=== PATIENT | male | born 1945 | race Caucasian/White ===

== ENCOUNTER 2016-12-09 14:47 | Inpatient (IN) | payer MEDICARE ==
[~2016-12-09] VITALS: Ht 185.4 cm; Wt 79.1 kg
[2016-12-09 14:52] VITALS: BP 150/70; PULSE 71; RESP 15; TEMP 97.7; O2SAT 97
--- NOTE | 2016-12-09 14:57 | PD ---
Physical Exam Date Seen by Provider: December 09, 2016 Time Seen by Provider: 14:53 Narrative 71 yo male that presents to the ED for evaluation of fall. History of dementia. History obtained from . He felt at the [facility]. Landed on his left hip as well as left elbow. No head injury. No LOC. Slidded down into the carpet. Has an abrasion to the left elbow. Vitals sign stable. Patient awaiting bed placement. Data Data Last Documented VS Vital Signs Date Time Temp Pulse Resp B/P Pulse Ox O2 Delivery O2 Flow Rate FiO2 12/09/16 14:52 97.7 71 15 150/70 97 MDM Medical Record Reviewed: Yes Supervised Visit with DORA: No Kalpesh Orellana December 09, 2016 14:57
--- NOTE | 2016-12-09 15:42 | PD ---
HPI Chief Complaint: Fall Time Seen by Provider: 15:42 Travel History International Travel<30 days: No Contact w/Intl Traveler<30days: No Traveled to known affect area: No History of Present Illness HPI 71-year-old male with a history of hypertension, hyperlipidemia, CHF, Parkinson' s disease, dementia presents to the emergency department for evaluation of left hip pain status post trip and fall. The patient is accompanied by his who provides much of the history. The patient and his are here visiting from [facility]. They were walking through a doorway at the [facility] where they're staying when the patient lost his balance and fell. The patient states that he was using his walker and was trying to hold the door open while his was going through the doorway with her scooter. States that he lost his balance trying to hold the door open and fell to the left scraping his left elbow and landing on his left hip. The patient's states that she saw him fall and that he did not hit his head or lose consciousness. He denies any lightheadedness, dizziness, nausea, vomiting, chest pain, shortness of breath, abdominal pain, numbness or tingling. He complains of pain in the left hip is aggravated with movement. No other complaints. He takes a baby aspirin daily but otherwise denies any anticoagulation. Last tetanus vaccination one year ago. PFSH Past Medical History Hx Anticoagulant Therapy: Yes (ASA) Heart Rhythm Problems: Yes Cardiovascular Problems: Yes (HTN) High Cholesterol: Yes Hypertension: Yes Neurologic: Yes (parkinson, dementia) Parkinson's Disease: Yes Social History Alcohol Use: No Tobacco Use: No Substance Use: No Allergies-Medications (Allergen,Severity, Reaction): Coded Allergies: Haldol (Verified Allergy, Severe, COMBATIVE, 12/09/16) Oxybutynin (Verified Allergy, Unknown, 12/09/16) Uncoded Allergies: steroids (Adverse Reaction, Severe, Confusion, 12/09/16) patient had episode in the past where he became extremely confused and combative after receiving steroids and his said that it is only to be given as a last resort. Reported Meds & Prescriptions Reported Meds & Active Scripts Active Reported Rivastigmine 1.5 Mg Cap 1.5 Mg PO BIDPC Sinemet (Carbidopa-Levodopa) 25-100 Mg Tab 2 Tab PO QID Amlodipine (Amlodipine Besylate) 10 Mg Tab 10 Mg PO DAILY Tamsulosin (Tamsulosin HCl) 0.4 Mg Cap 0.8 Mg PO AC DINNER Nuplazid (Pimavanserin) 17 Mg Tab 34 Mg PO DAILY Glycopyrrolate 1 Mg Tab 1 Mg PO BID Seroquel (Quetiapine Fumarate) 25 Mg Tab 25 Mg PO BID PRN Protonix (Pantoprazole Sodium) 40 Mg Tab 40 Mg PO DAILY Valsartan 160 Mg Tab 160 Mg PO DAILY Gnp Melatonin Maximum Str (Melatonin) 5 Mg Tab 10 Mg PO HS Review of Systems Except as stated in HPI: all other systems reviewed are Neg Physical Exam Narrative GENERAL: Well-nourished and well-developed pleasant elderly male patient in no acute distress who is nontoxic appearing. SKIN: Warm and dry. Abrasion to left elbow. HEAD: Normocephalic and atraumatic. EYES: No injection, drainage, or hyphema noted. PERRLA. EOMI. ENT: No nasal drainage noted. Oropharynx is clear. NECK: Supple and the trachea is midline. CARDIOVASCULAR: Regular rate and rhythm. RESPIRATORY: Breath sounds are equal bilaterally with no accessory muscle use, wheezing, rhonchi, or crackles. GASTROINTESTINAL: Abdomen is soft, non-tender, and nondistended. MUSCULOSKELETAL: Patient does have some range of motion in the left hip however does elicit pain. DP pulses are 2+ bilaterally. Sensation is intact. Full range of motion in the left elbow with no tenderness to palpation. No obvious deformities, swelling, cyanosis, or ecchymosis is present throughout the upper and lower extremities. Patient has full range of motion in all other extremities without any signs of neurovascular compromise. BACK: Nontender without any obvious deformities, bony point tenderness, or crepitus noted throughout the thoracic and lumbar vertebrae. NEUROLOGICAL: Awake, alert, and oriented. Normal speech and gait. Cranial nerves are grossly intact. Data Data Last Documented VS Vital Signs Date Time Temp Pulse Resp B/P Pulse Ox O2 Delivery O2 Flow Rate FiO2 12/09/16 17:29 156/74 95 Room Air 12/09/16 14:52 97.7 71 15 Orders Hip, Uni(Ap&Lat) W Ap Pelvis (12/09/16 15:41) Electrocardiogram (12/09/16 17:03) Complete Blood Count With Diff (12/09/16 17:03) Comprehensive Metabolic Panel (12/09/16 17:03) Prothrombin Time / Inr (Pt) (12/09/16 17:03) Act Partial Throm Time (Ptt) (12/09/16 17:03) Type And Screen (12/09/16 17:03) Chest, Single Ap (12/09/16 17:03) Iv Access Insert/Monitor (12/09/16 17:03) Oximetry (12/09/16 17:03) Morphine Inj (Morphine Inj) (12/09/16 17:15) Sodium Chloride 0.9% Flush (Ns Flush) (12/09/16 17:15) Ondansetron Inj (Zofran Inj) (12/09/16 17:15) Consult Orthopedic (12/09/16 ) (Hub Use Only)Inp Phy Cons/Ref (12/09/16 ) Admit Order (Ed Use Only) (12/09/16 17:56) Admit To Inpatient (12/09/16 ) Vital Signs (Adult) Q4H (12/09/16 17:56) Activity Bed Rest (12/09/16 17:56) Counter Attendant / Telemetry .CONTINUOUS (12/09/16 17:56) Diet Regular Basic (12/09/16 Dinner) Sodium Chlor 0.9% 1000 Ml Inj (Ns 1000 M (12/09/16 17:56) Sodium Chloride 0.9% Flush (Ns Flush) (12/09/16 18:00) Sodium Chloride 0.9% Flush (Ns Flush) (12/09/16 21:00) Ondansetron Inj (Zofran Inj) (12/09/16 18:00) Basic Metabolic Panel (Bmp) (12/10/16 06:00) Complete Blood Count With Diff (12/10/16 06:00) Scd Bilateral/Knee High ALEXI.BID (12/09/16 17:56) Acetaminophen (Tylenol) (12/09/16 18:00) Hydromorphone Pf Inj (Dilaudid Pf Inj) (12/09/16 18:00) Hydromorphone Pf Inj (Dilaudid Pf Inj) (12/09/16 18:00) Naloxone Inj (Narcan Inj) (12/09/16 18:00) Docusate Sodium-Senna (Judy-Colace) (12/09/16 21:00) Magnesium Hydroxide Liq (Milk Of Magnesi (12/09/16 18:00) Sennosides (Senokot) (12/09/16 18:00) Bisacodyl Supp (Dulcolax Supp) (12/09/16 18:00) Lactulose Liq (Lactulose Liq) (12/09/16 18:00) Inpatient Certification (12/09/16 ) Npo After Midnight W/ Po Meds (12/09/16 Dinner) Labs Laboratory Tests Test 12/09/16 17:30 White Blood Count 13.7 TH/MM3 Red Blood Count 4.42 MIL/MM3 Hemoglobin 13.0 GM/DL Hematocrit 40.1 % Mean Corpuscular Volume 90.7 FL Mean Corpuscular Hemoglobin 29.5 PG Mean Corpuscular Hemoglobin 32.5 % Concent Red Cell Distribution Width 14.5 % Platelet Count 213 TH/MM3 Mean Platelet Volume 8.8 FL Neutrophils (%) (Auto) 85.9 % Lymphocytes (%) (Auto) 8.1 % Monocytes (%) (Auto) 4.6 % Eosinophils (%) (Auto) 1.1 % Basophils (%) (Auto) 0.3 % Neutrophils # (Auto) 11.8 TH/MM3 Lymphocytes # (Auto) 1.1 TH/MM3 Monocytes # (Auto) 0.6 TH/MM3 Eosinophils # (Auto) 0.1 TH/MM3 Basophils # (Auto) 0.0 TH/MM3 CBC Comment DIFF FINAL Differential Comment Prothrombin Time 11.4 SEC Prothromb Time International 1.0 RATIO Ratio Activated Partial 27.5 SEC Thromboplast Time Sodium Level 139 MEQ/L Potassium Level 4.1 MEQ/L Chloride Level 106 MEQ/L Carbon Dioxide Level 25.7 MEQ/L Anion Gap 7 MEQ/L Blood Urea Nitrogen 25 MG/DL Creatinine 0.87 MG/DL Estimat Glomerular Filtration 86 ML/MIN Rate Random Glucose 90 MG/DL Calcium Level 8.4 MG/DL Total Bilirubin 0.5 MG/DL Aspartate Amino Transf 15 U/L (AST/SGOT) Alanine Aminotransferase 8 U/L (ALT/SGPT) Alkaline Phosphatase 95 U/L Total Protein 6.7 GM/DL Albumin 3.6 GM/DL [facility] Medical Decision Making Medical Screen Exam Complete: Yes Emergency Medical Condition: Yes Differential Diagnosis Contusion versus fracture versus sprain versus abrasion Narrative Course 71-year-old male presents to the emergency department for evaluation of left hip pain status post trip and fall onto his left hip. Patient is afebrile, vital signs are stable. No head trauma or loss of consciousness. No focal neurologic deficits. Left lower extremity is neurovascularly intact. He has an abrasion to the left elbow, tetanus is up-to-date. X-ray imaging the left hip has been ordered and is pending. X-ray of the left hip shows nondisplaced femoral neck fracture. Preoperative labs, chest x-ray and EKG have been ordered and are pending. Patient will be admitted to medicine service with orthopedic consultation. Physician Communication Physician Communication I spoke with Dr. Orellana orthopedic surgeon rn concurrent review who requests patient be admitted medicine service and kept nothing by mouth after midnight. I spoke with Dr. Thornton [facility] who agrees to admit the patient to his service. Diagnosis Primary Impression: Closed left hip fracture Qualified Code: S72.002A - Closed left hip fracture, initial encounter Admitting Information Admitting Physician Requests: Admit Johana Thornton December 09, 2016 15:42
[2016-12-09] MEDS ORDERED: VALS1TAB65 PO (16:30)
[2016-12-09] MEDS ORDERED: GLYC1TAB17 PO (16:30)
[2016-12-09] MEDS ORDERED: GNP5TAB6 PO (16:30)
[2016-12-09] MEDS ORDERED: PROT40TA PO (16:30)
[2016-12-09] MEDS ORDERED: SINE25TA PO (16:30)
[2016-12-09] MEDS ORDERED: TAMS0.4C4 PO (16:30)
[2016-12-09] MEDS ORDERED: RIVA1.5C PO (16:30)
[2016-12-09] MEDS ORDERED: SERO25TA PO (16:30)
[2016-12-09] MEDS ORDERED: AMLO10TA2 PO (16:30)
[2016-12-09] MEDS ORDERED: [UNRECOGNIZED DRUG - CODE] PO (16:30)
--- NOTE | 2016-12-09 16:59 | RADRPT ---
EXAM DATE/TIME: 12/09/2016 16:42 [facility] COMPARISON: No previous studies available for comparison. INDICATIONS : Left hip pain after falling today. MEDICAL HISTORY : Hypertension. SURGICAL HISTORY : None. ENCOUNTER: Initial ACUITY: 1 day PAIN SCORE: 10/10 LOCATION: Left hip joint. FINDINGS: There is a nondisplaced impaction fracture through the neck of the proximal left femur. No joint disl ocation is seen. The bony structures of the pelvis are grossly intact. There are degenerative changes of the lower lumbar spine. The right hip is unremarkable. The bony structures of the pelvis are fco sly intact. CONCLUSION: Nondisplaced impaction fracture through the neck of the left femur. Emile Grant MD on December 09, 2016 at 16:56 Board Certified Radiologist. This report was verified electronically.
[2016-12-09] MEDS ORDERED: MORPHINE SULFATE 4 MG/ML INJ IV PUSH ONE (17:15)
[2016-12-09] MEDS ORDERED: ONDANSETRON HCL 4 MG/2 ML VIAL IV PUSH ONE (17:15)
[2016-12-09] MEDS ORDERED: SODIUM CHLORIDE 0.9% FLUSH 10 ML FLUSH IVF PRN (17:15)
[2016-12-09 17:29] VITALS: BP 156/74; O2SAT 95
--- NOTE | 2016-12-09 17:30 | RADRPT ---
EXAM DATE/TIME: 12/09/2016 17:05 [facility] COMPARISON: No previous studies available for comparison. INDICATIONS : Chest pain after fall. MEDICAL HISTORY : None. SURGICAL HISTORY : None. ENCOUNTER: Initial ACUITY: 3 days PAIN SCORE: 3/10 LOCATION: Bilateral chest FINDINGS: A single view of the chest demonstrates the lungs to be symmetrically aerated without evidence of mas s, infiltrate or effusion. The cardiomediastinal contours are unremarkable. Osseous structures are intact. CONCLUSION: No acute disease. Emile Grant MD on December 09, 2016 at 17:28 Board Certified Radiologist. This report was verified electronically.
[2016-12-09 17:50] LABS: AUTOMATED NEUTROPHIL # 11.8 TH/MM3 (1.8-7.7); BASOPHIL % 0.3 % (0.0-2.0); EOSINOPHIL # 0.1 TH/MM3 (0-0.4); EOSINOPHIL % 1.1 % (0.0-4.0); HEMATOCRIT 40.1 % (39.0-51.0); HEMO FLAGS DIFF FINAL; LYMPH % 8.1 % (9.0-44.0); LYMPHOCYTE # 1.1 TH/MM3 (1.0-4.8); MEAN CELL VOLUME 90.7 FL (80.0-100.0); MEAN CORPUSCULAR HEMOGLOBIN 29.5 PG (27.0-34.0); MEAN CORPUSCULAR HGB CONC 32.5 % (32.0-36.0); MONO % 4.6 % (0.0-8.0); NEUT % 85.9 % (16.0-70.0); PLATELET COUNT 213 TH/MM3 (150-450); RED BLOOD COUNT 4.42 MIL/MM3 (4.50-5.90); RED CELL DISTRIBUTION WIDTH 14.5 % (11.6-17.2); WHITE BLOOD COUNT 13.7 TH/MM3 (4.0-11.0)
[2016-12-09] MEDS ORDERED: ONDANSETRON HCL 4 MG/2 ML VIAL IVP PRN (18:00)
[2016-12-09] MEDS ORDERED: BISACODYL 10 MG SUPP RECTAL PRN (18:00)
[2016-12-09] MEDS ORDERED: SODIUM CHLORIDE 0.9% FLUSH 10 ML FLUSH IV FLUSH PRN (18:00)
[2016-12-09] MEDS ORDERED: NALOXONE HCL 0.4 MG/ML AMP IV PRN (18:00)
[2016-12-09] MEDS ORDERED: ACETAMINOPHEN 325 MG TAB PO PRN (18:00)
[2016-12-09] MEDS ORDERED: HYDROmorphone HCL PF 1 MG/ML VIAL IV PRN (18:00)
[2016-12-09 18:04] LABS: ALT (GPT) 8 U/L (12-78); ANION GAP 7 MEQ/L (5-15); AST (GOT) 15 U/L (15-37); BICARBONATE 25.7 MEQ/L (21.0-32.0); BLOOD UREA NITROGEN 25 MG/DL (7-18); CHLORIDE 106 MEQ/L (98-107); GLOMERULAR FILTRATION RATE 86 ML/MIN (>89); POTASSIUM 4.1 MEQ/L (3.5-5.1); SODIUM (NA) 139 MEQ/L (136-145)
[2016-12-09 18:06] LABS: ALKALINE PHOSPHATASE 95 U/L (45-117); APTT (PATIENT) 27.5 SEC (24.3-30.1); PROTHROMBIN TIME - PATIENT 11.4 SEC (9.8-11.6); TOTAL BILIRUBIN ADULT 0.5 MG/DL (0.2-1.0)
--- NOTE | 2016-12-09 18:54 | HHI.HP ---
[facility] Non[facility]Staff Admission Diagnosis Left Femoral Neck Fracture, Mechanical Fall Diagnoses: Travel History International Travel<30 Days: No Contact w/Intl Traveler <30 Da: No Traveled to Known Affected Are: No History of Present Illness Mr. Monzon is a 71-year-old male. He has a history of dementia and hypertension. Dementia limits direct history. He can recall that his father had Alzheimer and and his mother had coronary artery disease. She does have a distant history of smoking but is not currently smoking or drinking any alcohol or doing any drugs. He fell today and has a left-sided proximal heme or fracture. The only surgeries he can recall her bilateral knee surgery, appendectomy and a tonsillectomy in the past. he denies any lung disease and says he has not had any problems with previous surgeries. No other complaints at this time. Ages the patient's primary risk for surgery she does not appear to have any heart or lung disease to inhibit him from a surgery in the morning. Review of Systems Constitutional: DENIES: Fatigue, Fever, Chills Eyes: DENIES: Blurred vision, Diplopia Ears, nose, mouth, throat: DENIES: Tinnitus, Hearing loss, Vertigo Respiratory: DENIES: Cough, Wheezing, Shortness of breath Cardiovascular: DENIES: Chest pain, Palpitations, Syncope Gastrointestinal: DENIES: Abdominal pain, Black stools, Bloody stools Musculoskeletal: COMPLAINS OF: Joint pain, Joint Swelling Integumentary: DENIES: Abnormal pigmentation Hematologic/lymphatic: DENIES: Bruising Immunologic/allergic: DENIES: Eczema Neurologic: COMPLAINS OF: Abnormal gait, DENIES: Headache Psychiatric: COMPLAINS OF: Confusion, DENIES: Anxiety Past Family Social History Past Medical History Dementia Hypertension Past Surgical History Right knee surgery Left knee surgery Tonsillectomy Appendectomy Reported Medications Reported Meds & Active Scripts Active Reported Rivastigmine 1.5 Mg Cap 1.5 Mg PO BIDPC Sinemet (Carbidopa-Levodopa) 25-100 Mg Tab 2 Tab PO QID Amlodipine (Amlodipine Besylate) 10 Mg Tab 10 Mg PO DAILY Tamsulosin (Tamsulosin HCl) 0.4 Mg Cap 0.8 Mg PO AC DINNER Nuplazid (Pimavanserin) 17 Mg Tab 34 Mg PO DAILY Glycopyrrolate 1 Mg Tab 1 Mg PO BID Seroquel (Quetiapine Fumarate) 25 Mg Tab 25 Mg PO BID PRN Protonix (Pantoprazole Sodium) 40 Mg Tab 40 Mg PO DAILY Valsartan 160 Mg Tab 160 Mg PO DAILY Gnp Melatonin Maximum Str (Melatonin) 5 Mg Tab 10 Mg PO HS Allergies: Coded Allergies: Haldol (Verified Allergy, Severe, COMBATIVE, 12/09/16) Oxybutynin (Verified Allergy, Unknown, 12/09/16) Uncoded Allergies: steroids (Adverse Reaction, Severe, Confusion, 12/09/16) patient had episode in the past where he became extremely confused and combative after receiving steroids and his said that it is only to be given as a last resort. Active Ordered Medications Administered Medications Medications (Trade) Dose Ordered Sig/Gideon Route PRN Reason Start Time Stop Time Status Last Admin Dose Admin Sodium Chloride (NS Flush) 2 ml UNSCH PRN IVF FLUSH AFTER USING IV ACCESS 12/09/16 17:15 12/09/16 17:44 Family History Alzheimer's and father Coronary artery disease in mother Social History Distant history of smoking No current smoking, alcohol, or drug abuse Patient lives with his Physical Exam Vital Signs Vital Signs Date Time Temp Pulse Resp B/P Pulse Ox O2 Delivery O2 Flow Rate FiO2 12/09/16 17:29 156/74 95 Room Air 12/09/16 15:34 95 Room Air 12/09/16 14:52 97.7 71 15 150/70 97 Physical Exam GENERAL: NAD, A&Ox2 SKIN: Warm and dry. HEAD: Normocephalic. EYES: No scleral icterus. No injection or drainage. NECK: Supple, trachea midline. No JVD or lymphadenopathy. CARDIOVASCULAR: Regular rate and rhythm without murmurs, gallops, or rubs. RESPIRATORY: Breath sounds equal bilaterally. No accessory muscle use. GASTROINTESTINAL: Abdomen soft, non-tender, nondistended. MUSCULOSKELETAL: No cyanosis, or edema. Left hip pain and tenderness Laboratory Laboratory Tests Test 12/09/16 17:30 White Blood Count 13.7 Red Blood Count 4.42 Hemoglobin 13.0 Hematocrit 40.1 Mean Corpuscular Volume 90.7 Mean Corpuscular Hemoglobin 29.5 Mean Corpuscular Hemoglobin 32.5 Concent Red Cell Distribution Width 14.5 Platelet Count 213 Mean Platelet Volume 8.8 Neutrophils (%) (Auto) 85.9 Lymphocytes (%) (Auto) 8.1 Monocytes (%) (Auto) 4.6 Eosinophils (%) (Auto) 1.1 Basophils (%) (Auto) 0.3 Neutrophils # (Auto) 11.8 Lymphocytes # (Auto) 1.1 Monocytes # (Auto) 0.6 Eosinophils # (Auto) 0.1 Basophils # (Auto) 0.0 CBC Comment DIFF FINAL Differential Comment Prothrombin Time 11.4 Prothromb Time International 1.0 Ratio Activated Partial 27.5 Thromboplast Time Sodium Level 139 Potassium Level 4.1 Chloride Level 106 Carbon Dioxide Level 25.7 Anion Gap 7 Blood Urea Nitrogen 25 Creatinine 0.87 Estimat Glomerular Filtration 86 Rate Random Glucose 90 Calcium Level 8.4 Total Bilirubin 0.5 Aspartate Amino Transf 15 (AST/SGOT) Alanine Aminotransferase 8 (ALT/SGPT) Alkaline Phosphatase 95 Total Protein 6.7 Albumin 3.6 Blood Type A POSITIVE Antibody Screen NEGATIVE Blood Bank Comment Result Diagram: 12/09/16 17312/09/161729 Assessment and Plan Problem List: (1) Closed left hip fracture ICD Code: S72.002A Status: Acute Assessment and Plan Assessment and plan 71-year-old male admitted with a closed left hip fracture. Close left hip fracture Orthopedic consult When necessary pain treatments Nothing by mouth at midnight Surgical repair planned Patient clear for surgery Dementia Supportive care Hypertension Nothing by mouth for now Treatments on hold DVT prophylaxis SCDs Physician Certification 2 Midnight Certification Type: Admission for Inpatient Services Order for Inpatient Services The services are ordered in accordance with Medicare regulations or non- Medicare payer requirements, as applicable. In the case of services not specified as inpatient-only, they are appropriately provided as inpatient services in accordance with the 2-midnight benchmark. Estimated LOS (days): 3 days is the estimated time the patient will need to remain in the hospital, assuming treatment plan goals are met and no additional complications. Post-Hospital Plan: SNF Problem Qualifiers (1) Closed left hip fracture: Qualified Code: S72.002A - Closed left hip fracture, initial encounter Ryan Thornton MD December 09, 2016 6:54 pm
[2016-12-09 19:30] VITALS: BP 145/70; PULSE 68; RESP 17; TEMP 97.2; O2SAT 96
[2016-12-09] MEDS: HYDROmorphone HCL PF 1 MG/ML VIAL IV PRN (20:19)
[2016-12-09] MEDS ORDERED: SODIUM CHLORIDE 0.9% FLUSH 10 ML FLUSH IV FLUSH SCH (21:00)
[2016-12-09] MEDS: SODIUM CHLOR 0.9% 1000 ML INJ 1,000 ML IV SCH (21:39)
[2016-12-09] MEDS: DOCUSATE SODIUM 50 MG/SENNA 8.6 MG TAB PO SCH (21:39)
[2016-12-09] MEDS: CARBIDOPA/LEVODOPA 25 MG/100 MG TAB PO SCH (21:40)
[2016-12-10] VITALS (7 sets, daily range): BP systolic 120–153; BP diastolic 60–89; PULSE 45–74; RESP 17–20; TEMP 95.8–99.2; O2SAT 90–95
[2016-12-10] MEDS: HYDROmorphone HCL PF 1 MG/ML VIAL IV PRN ×3 (02:46→22:07)
[2016-12-10] MEDS: SODIUM CHLOR 0.9% 1000 ML INJ 1,000 ML IV SCH ×2 (03:52→14:00)
[2016-12-10] MEDS: QUEtiapine FUMARATE 25 MG TAB PO PRN (04:15)
[2016-12-10] MEDS ORDERED: SODIUM CHLORID 0.9% 500 ML IV PRN (06:30)
[2016-12-10] MEDS ORDERED: POVIDONE IODINE 5% (ANTISEPSIS KIT) 4 APPLICATIONS EACH NARE PRN (06:30)
[2016-12-10] MEDS ORDERED: INSULIN HUMAN REGULAR 1,000 UNITS/10 ML VIAL SQ PRN (06:30)
[2016-12-10] MEDS ORDERED: METOPROLOL TARTRATE 25 MG TAB PO PRN (06:30)
[2016-12-10] MEDS ORDERED: LACTATED RINGER'S 1000 ML IV PRN (06:30)
[2016-12-10] MEDS ORDERED: CHLORHEXIDINE GLUCONATE 2 % 1 PACK (2 CLOTHS) TOPICAL PRN (06:30)
--- NOTE | 2016-12-10 06:56 | PD.ORT.PN ---
Subjective Subjective Remarks s/p fall at hotel yesterday history of parkinson and dementia. left hip pain Objective Vitals Vital Signs Date Time Temp Pulse Resp B/P Pulse Ox O2 Delivery O2 Flow Rate FiO2 12/10/16 03:55 98.1 72 18 153/71 93 12/10/16 00:25 97.7 45 18 131/89 92 12/09/16 19:30 97.2 68 17 145/70 96 12/09/16 17:29 156/74 95 Room Air 12/09/16 15:34 95 Room Air 12/09/16 14:52 97.7 71 15 150/70 97 I/O 12/09/16 12/09/16 12/09/16 12/10/16 12/10/16 12/10/16 07:00 15:00 23:00 07:00 15:00 23:00 Intake Total 120 ml 692 ml Balance 120 ml 692 ml Intake Oral 120 ml IV Total 692 ml # Voids 1 # Bowel Movements 0 Result Diagram: 12/09/16 1730 12/09/16 1730 Other Results Laboratory Tests Test 12/09/16 17:30 Prothrombin Time 11.4 SEC (9.8-11.6) Prothromb Time International 1.0 RATIO Ratio Imaging Last 24 hours Impressions Chest X-Ray 12/09/16 1703 Signed Impressions: Service Date/Time: Friday, December 09, 2016 17:05 - CONCLUSION: No acute disease. Emile Grant MD Hip and Pelvis X-Ray 12/09/16 1541 Signed Impressions: Service Date/Time: Friday, December 09, 2016 16:42 - CONCLUSION: Nondisplaced impaction fracture through the neck of the left femur. Emile Grant MD Objective Remarks LLE: pain with motion. nvi Assessment & Plan Assessment and Plan 1) Left Femoral Neck fx -npo -consents -surgery today Mohit Cruz December 10, 2016 06:56
[2016-12-10] MEDS ORDERED: VITA2000 PO (06:58)
[2016-12-10] MEDS ORDERED: CALCTAB19 PO (06:58)
[2016-12-10] MEDS ORDERED: ERGO1CAP30 PO (06:58)
[2016-12-10] MEDS ORDERED: XARE10TA PO (06:58)
[2016-12-10] MEDS ORDERED: WALKER/ADULT/FO1 MIS (06:58)
[2016-12-10] MEDS ORDERED: HYDR-3580 PO (06:58)
[2016-12-10 07:09] LABS: AUTOMATED NEUTROPHIL # 10.6 TH/MM3 (1.8-7.7); BASOPHIL # 0.1 TH/MM3 (0-0.2); BASOPHIL % 0.6 % (0.0-2.0); EOSINOPHIL # 0.2 TH/MM3 (0-0.4); EOSINOPHIL % 1.5 % (0.0-4.0); HEMATOCRIT 38.7 % (39.0-51.0); HEMO FLAGS DIFF FINAL; LYMPH % 8.4 % (9.0-44.0); LYMPHOCYTE # 1.1 TH/MM3 (1.0-4.8); MEAN CELL VOLUME 90.3 FL (80.0-100.0); MEAN CORPUSCULAR HEMOGLOBIN 29.5 PG (27.0-34.0); MEAN CORPUSCULAR HGB CONC 32.7 % (32.0-36.0); NEUT % 84.5 % (16.0-70.0); PLATELET COUNT 199 TH/MM3 (150-450); RED BLOOD COUNT 4.28 MIL/MM3 (4.50-5.90); RED CELL DISTRIBUTION WIDTH 14.4 % (11.6-17.2); WHITE BLOOD COUNT 12.6 TH/MM3 (4.0-11.0)
[2016-12-10] MEDS ORDERED: SODIUM CHLOR 0.9% 250 ML INJ 250 ML ONE (07:16)
[2016-12-10] MEDS ORDERED: VANCOMYCIN HCL 1000 MG VIAL ONE (07:16)
[2016-12-10] MEDS ORDERED: GENTAMICIN SULFATE 80 MG/2 ML VIAL ONE (07:16)
[2016-12-10] MEDS ORDERED: ceFAZolin 2 GM PREMIX 50 ML ONE (07:16)
[2016-12-10 07:29] LABS: BICARBONATE 30.6 MEQ/L (21.0-32.0); POTASSIUM 3.9 MEQ/L (3.5-5.1)
[2016-12-10] MEDS ORDERED: ONDANSETRON HCL 4 MG/2 ML VIAL ONE (07:47)
[2016-12-10] MEDS ORDERED: FAMOTIDINE 20 MG/2 ML VIAL ONE (07:47)
[2016-12-10] MEDS ORDERED: BUPIVACAINE/EPINEPHRINE 0.5% PF 30 ML VIAL ONE (08:32)
[2016-12-10] MEDS ORDERED: BUPIVACAINE HCL PF 0.25% 30 ML VIAL INFIL ONE (08:35)
[2016-12-10] MEDS ORDERED: SODIUM CHLORIDE 0.9% FLUSH 5 ML FLUSH IVF PRN (08:45)
[2016-12-10] MEDS ORDERED: MORPHINE SULFATE 4 MG/ML INJ IV PUSH PRN (08:45)
[2016-12-10] MEDS ORDERED: Post-op Orders (for Pharmacy) MISC XX ONE (08:45)
[2016-12-10] MEDS ORDERED: ERGOCALCIFEROL (VIT D2) 50,000 UNIT CAP PO ONE (08:45)
--- NOTE | 2016-12-10 08:48 | PD.OP ---
cc: Morris Rudolph MD Operative Report Date of Surgery: December 10, 2016 Preoperative Diagnosis: Nondisplaced left femoral neck fracture Postoperative Diagnosis: Procedure: Left hip pinning Anesthesia: Gen. Surgeon: Morris Rudolph Lead Fabricator(s): JUAN Brand PA-C Operation and Findings: Plan of activity: TTWB x3 weeks, then to do percent weightbearing 3 weeks Patient was seen and evaluated preoperatively. The patient has significant hip pain from impacted femoral neck fracture. The risk and benefits of surgery were discussed in depth with the patient to include bleeding infection nonunion malunion, avascular necrosis and need for hip replacement painful hardware as well as medical competitions including but not stroke heart attack and . Informed consent was obtained. Operative site was marked. Patient was brought to the operating room and placed on fracture table. IV sedation was administered by anesthesiologist. Timeout procedure was performed. Hip and leg were prepped with alcohol followed by Hibiclens and draped in the usual sterile fashion. IV antibiotics were given prior to incision. Procedure began with evaluation of fracture under fluoroscopy. Leg was gently manipulated to improve alignment. Excellent reduction was achieved. Fluoroscopy was used to confirm reduction. A three cm incision was along the lateral aspect of the proximal femur . Subcutaneous tissue was dissected bluntly. Three guidepins were placed through the lateral cortex of the proximal femur. Guide pins were placed in an inverted triangle position. Guide pins were advanced across the fracture site into the femoral head. Fluoroscopy confirmed appropriate guidepin placement. The screw lengths were measured. A cannulated drill was placed over each of the guide pins. Appropriate length Synthes 7.3 cannulated screws were placed over the guidepins. Good compression was applied across the fracture. Final fluoroscopy revealed well aligned fracture with well-placed hardware. Incision was closed with 3-0 Vicryl and chase. Sterile dressings were applied. Patient was awakened and transferred to recovery room. Morris Rudolph MD December 10, 2016 08:48
[2016-12-10] MEDS: CARBIDOPA/LEVODOPA 25 MG/100 MG TAB PO SCH ×4 (09:00→21:00)
[2016-12-10] MEDS: DOCUSATE SODIUM 50 MG/SENNA 8.6 MG TAB PO SCH ×2 (09:00→21:00)
[2016-12-10] MEDS ORDERED: PIMAVANSERIN PO SCH (09:00)
[2016-12-10] MEDS ORDERED: PIMAVANSERIN 34 MG PO SCH (09:00)
[2016-12-10] MEDS ORDERED: DO NOT ADM ANY ANTICOAGULANT DRUGS PRN (09:12)
[2016-12-10] MEDS ORDERED: fentaNYL CITRATE 250 MCG/5 ML AMP ONE (09:15)
--- NOTE | 2016-12-10 09:18 | MB ---
cc: JOSE LUIS RAO DATE OF ADMISSION 12/09/2016 DATE OF CONSULTATION 12/10/2016 REASON FOR CONSULTATION left femoral neck fracture. CONSULTING PHYSICIAN Dr. Ryan Thornton. HISTORY Rito is a 71-year-old male who has a history of dementia and Parkinson's disease. He had a fall yesterday. He had left hip pain. He presented to the emergency room where x-rays revealed a minimally displaced left femoral neck fracture. He is currently awake on the orthopedic floor. His is at bedside. He has minimal pain at rest. The pain is worse with movement. He denies dizziness, syncope or loss of consciousness. PAST MEDICAL HISTORY ILLNESSES Dementia. Hypertension SURGERIES 1. Bilateral knee surgeries. 2. Tonsillectomy. 3. Appendectomy. MEDICATIONS 1. Sinemet. 2. Amlodipine. 3. Tamsulosin. 4. Seroquel. 5. Protonix. 6. Valsartan. 7. Melatonin. ALLERGIES HALDOL. OXYBUTYNIN. STEROIDS. FAMILY HISTORY Positive for Alzheimer's disease in the father and coronary artery disease in his mother. SOCIAL HISTORY The patient denies alcohol, tobacco or drug use. He lives with his . REVIEW OF SYSTEMS The patient and his deny the patient has headache, visual changes, neck pain, chest pain, shortness of breath, abdominal pain, nausea, vomiting, recent weight loss, numbness or tingling of extremities. He complains of left hip pain. He does have some memory loss from dementia. PHYSICAL EXAMINATION GENERAL: The patient is a thin, 71-year male in no acute distress. He is awake and appears comfortable. He appears well-developed and well-nourished. VITAL SIGNS: Temperature 98.6, pulse 64, respirations 18, blood pressure 138/67, O2 sat 94% on room air. HEAD: The patient is normocephalic. Pupils are equal. NECK: Soft, nontender. Trachea is midline. ABDOMEN: Soft, nontender, nondistended. EXTREMITIES: Examination of bilateral upper extremities reveals no obvious pain or deformity with shoulder, elbow or wrist motion. He has intact sensation in all fingers. He has good capillary refill in the fingers. Radial pulses are palpable. Examination of right leg reveals no pain with hip, knee or ankle motion. Skin is intact. Dorsalis pedis pulses palpable. Sensation is intact. Examination of left leg reveals pain with hip motion. He has no tension of his knee, tibia or ankle. Skin is intact. Thigh and calf compartments are soft. Dorsalis pedis pulses palpable. X-RAYS X-rays of the left hip were reviewed. X-rays reveal minimally displaced left femoral neck fracture. IMPRESSION 1. Parkinson's disease. 2. Dementia. 3. Left femoral neck fracture. PLAN The treatment options were discussed with the patient. At this point I would recommend left hip pinning. The risks of surgery include bleeding, infection, injury to arteries, nerves or blood vessels, avascular necrosis, need for hip replacement, hip arthritis, painful hardware as well as medical complications including blood clot, stroke, heart attack and . All questions were answered. I will plan on surgery today. A mid-level provider in my office (nurse practitioner or physician residential real estate assistant) may see this patient on follow-up visits and continue to implement the objectives of this plan including: Starting or adjusting medications, injections , cast application, orthotics, brace application, physical therapy, radiological studies (including x-ray, MRI, CT, ultrasound, bone scan), vascular studies, neurologic studies, specialist consultation, and proceeding with surgical management, as appropriate. MD RASHI Kelley/MC /8:53 AM /9:10 AM MTDAndrew
--- NOTE | 2016-12-10 09:20 | EKG ---
Date Performed: 12/09/2016 Time Performed: 17:35:31 PTAGE: 71 years EKG: Sinus rhythm RIGHT BUNDLE BRANCH BLOCK LEFT ANTERIOR FASCICULAR BLOCK VOLTAGE CRITERIA FOR LVH POSSIBLE SEPTAL MY OCARDIAL INFARCTION ABNORMAL ECG NO PREVIOUS TRACING DOCTOR: Sanford Dukes Interpretating Date/Time 12/10/2016 09:19:55
[2016-12-10] MEDS ORDERED: PROPOFOL 200 MG/20 ML AMP IV ONE (10:36)
[2016-12-10] MEDS ORDERED: ePHEDrine/NS 25 MG/5 ML SYR IV ONE (10:36)
[2016-12-10] MEDS ORDERED: HALOPERIDOL LACTATE 5 MG/ML AMP IM ONE (11:15)
[2016-12-10] MEDS ORDERED: LORazepam 2 MG/ML VIAL IV PUSH ONE (12:30)
--- NOTE | 2016-12-10 12:55 | RADRPT ---
EXAM DATE/TIME: 12/10/2016 08:40 [facility] COMPARISON: HIP LEFT (AP&LAT 2/3VWS) W AP PELVIS, December 09, 2016, 16:42. INDICATIONS : Left hip pinning. MEDICAL HISTORY : None. SURGICAL HISTORY : None. ENCOUNTER: Subsequent ACUITY: 2 days PAIN SCORE: Non-responsive. LOCATION: Left hip. FINDINGS: A two view examination of the left hip was performed in the OR. 3 screws are seen to traverse the lef t femoral neck and head region successfully reducing the subcapital femoral neck fracture. The hardwa re is well-placed. The left hip joint is normally aligned. CONCLUSION: Successful ORIF. Markos Castillo MD on December 10, 2016 at 12:52 Board Certified Radiologist. This report was verified electronically.
--- NOTE | 2016-12-10 14:11 | HHI.PR ---
Subjective Remarks Successful surgical repair of left hip today. Patient is seen after surgery. He has an acute delirium postop, with combativeness and risk for self-harm. She has allergy to Haldol, Ativan was provided. After the treatment and he is able to rest. Objective Vital Signs Date Time Temp Pulse Resp B/P Pulse Ox O2 Delivery O2 Flow Rate FiO2 12/10/16 12:09 98.6 69 20 133/80 90 12/10/16 10:14 97.2 67 16 156/72 99 Nasal Cannula 3 12/10/16 10:00 64 16 142/68 99 Nasal Cannula 3 12/10/16 09:45 62 16 154/71 99 Nasal Cannula 3 12/10/16 09:30 61 16 145/67 99 Nasal Cannula 3 12/10/16 09:15 64 15 149/71 99 Nasal Cannula 3 12/10/16 09:09 98.2 62 15 144/66 99 Nasal Cannula 3 12/10/16 06:47 98.6 64 18 138/67 94 12/10/16 03:55 98.1 72 18 153/71 93 12/10/16 00:25 97.7 45 18 131/89 92 12/09/16 19:30 97.2 68 17 145/70 96 12/09/16 17:29 156/74 95 Room Air 12/09/16 15:34 95 Room Air 12/09/16 14:52 97.7 71 15 150/70 97 I/O 12/09/16 12/09/16 12/09/16 12/10/16 12/10/16 12/10/16 07:00 15:00 23:00 07:00 15:00 23:00 Intake Total 120 ml 692 ml 750 ml Output Total 500 ml 250 ml Balance 120 ml 192 ml 500 ml Intake Oral 120 ml 0 ml IV Total 692 ml 150 ml Other 600 ml Output Urine Total 500 ml 200 ml Estimated Blood Loss 50 ml # Voids 1 # Bowel Movements 0 0 Result Diagram: 12/10/16 0632 12/10/16 0632 Imaging Last Impressions Hip X-Ray 12/10/16 0000 Signed Impressions: Service Date/Time: Saturday, December 10, 2016 08:40 - CONCLUSION: Successful ORIF. Markos Castillo MD Chest X-Ray 12/09/16 1703 Signed Impressions: Service Date/Time: Friday, December 09, 2016 17:05 - CONCLUSION: No acute disease. Emile Grant MD Hip and Pelvis X-Ray 12/09/16 1541 Signed Impressions: Service Date/Time: Friday, December 09, 2016 16:42 - CONCLUSION: Nondisplaced impaction fracture through the neck of the left femur. Emile Grant MD Procedures Left hip fracture repair 12/10/16 Objective Remarks GENERAL: NAD, A&Ox0 SKIN: Warm and dry. HEAD: Normocephalic. EYES: No scleral icterus. No injection or drainage. NECK: Supple, trachea midline. No JVD or lymphadenopathy. CARDIOVASCULAR: Regular rate and rhythm without murmurs, gallops, or rubs. RESPIRATORY: Breath sounds equal bilaterally. No accessory muscle use. GASTROINTESTINAL: Abdomen soft, non-tender, nondistended. MUSCULOSKELETAL: No cyanosis, or edema. Limited range of motion of left hip post op, bandage in place. Medications and IVs Administered Medications Medications (Trade) Dose Ordered Sig/Gideon Route PRN Reason Start Time Stop Time Status Last Admin Dose Admin Sodium Chloride (NS 1000 ml Inj) 1,000 ml @ 100 mls/hr Q10H IV 12/09/16 18:00 12/09/16 21:39 Hydromorphone HCl (Dilaudid Pf Inj) 1 mg Q3H PRN IV Pain 6-10;if unable to take PO 12/09/16 18:00 12/10/16 10:43 Senna/Docusate Sodium (Judy-Colace) 1 tab BID PO 12/09/16 21:00 12/09/16 21:39 Carbidopa/Levodopa (Sinemet 25-100 Mg) 2 tab QID PO 12/09/16 21:00 12/09/16 21:40 Quetiapine Fumarate 25 mg 25 mg BID PRN PO ANXIETY 12/09/16 19:00 12/10/16 04:15 Cefazolin Sodium/ Sodium Chloride (Ancef Inj/NS Inj) 100 ml @ 200 mls/hr Q6H IV 12/10/16 14:00 12/11/16 02:29 12/10/16 13:43 A/P Problem List: (1) Closed left hip fracture ICD Code: S72.002A (2) Dementia ICD Code: F03.90 (3) HTN (hypertension) ICD Code: I10 Assessment and Plan Assessment and plan 71 year old male status post repair of left hip fracture. Acute delirium occurred today after patient was coming out of anesthesia. Restraints and Ativan were necessary due to the degree of combativeness and risk for self-harm. Close left hip fracture Ortho Evra following Patient is now post surgical repair Physical therapy When necessary pain treatments Dementia Supportive care Exacerbated by anesthesia Exacerbation may expected to resolve in 1-2 days Hypertension Valsartan resumes Follow blood pressure Problem Qualifiers (1) Closed left hip fracture: Qualified Code: S72.002A - Closed left hip fracture, initial encounter Ryan Thornton MD December 10, 2016 14:11
[2016-12-10] MEDS ORDERED: LORazepam 2 MG/ML VIAL IV PUSH PRN (14:15)
[2016-12-10] MEDS: TAMSULOSIN HCL 0.4 MG CAP PO SCH (16:00)
[2016-12-10] MEDS: SODIUM CHLORIDE 0.9% FLUSH 5 ML FLUSH IVF SCH (21:00)
[2016-12-10] MEDS: CALCIUM/VITAMIN D 250 MG/125 U TAB PO SCH (21:00)
[2016-12-10] MEDS: GLYCOPYRROLATE 1 MG TAB PO SCH (21:00)
[2016-12-10] MEDS: ENOXAPARIN SODIUM 30 MG/0.3 ML SYRINGE SQ SCH (22:12)
[2016-12-10] MEDS: MELATONIN 5 MG TAB PO SCH (22:41)
[2016-12-11 00:54] VITALS: BP 140/80; PULSE 71; RESP 19; TEMP 100.2; O2SAT 98
[2016-12-11] MEDS: SODIUM CHLOR 0.9% 1000 ML INJ 1,000 ML IV SCH ×4 (03:19→21:42)
[2016-12-11 06:07] LABS: BICARBONATE 24.7 MEQ/L (21.0-32.0); POTASSIUM 3.9 MEQ/L (3.5-5.1)
[2016-12-11 06:14] LABS: HEMATOCRIT 37.2 % (39.0-51.0); MEAN CELL VOLUME 89.2 FL (80.0-100.0); MEAN CORPUSCULAR HEMOGLOBIN 30.2 PG (27.0-34.0); MEAN CORPUSCULAR HGB CONC 33.9 % (32.0-36.0); PLATELET COUNT 169 TH/MM3 (150-450); RED BLOOD COUNT 4.17 MIL/MM3 (4.50-5.90); REVIEW FLAG FINAL; WHITE BLOOD COUNT 11.2 TH/MM3 (4.0-11.0)
[2016-12-11 06:38] VITALS: BP 156/72; PULSE 75; RESP 19; TEMP 98.1; O2SAT 98
[2016-12-11 08:00] VITALS: BP 154/67; PULSE 62; RESP 16; TEMP 97.9; O2SAT 98
[2016-12-11] MEDS ORDERED: RIVAROXABAN 10 MG TAB PO SCH (09:00)
[2016-12-11] MEDS ORDERED: CHOLECALCIFEROL (VIT D3) 5000 UNIT CAP PO SCH (09:00)
--- NOTE | 2016-12-11 09:56 | HHI.PR ---
Subjective Remarks Acute delerium is improved today compasred to yesterday. Delerium is not yet resolved. Patient able to conversate, but is confused. Objective Vital Signs Date Time Temp Pulse Resp B/P Pulse Ox O2 Delivery O2 Flow Rate FiO2 12/11/16 06:38 98.1 75 19 156/72 98 12/11/16 00:54 100.2 71 19 140/80 98 12/10/16 20:06 99.2 74 19 139/60 95 12/10/16 18:14 90 Nasal Cannula 3.00 12/10/16 16:00 95.8 71 17 120/66 95 12/10/16 12:09 98.6 69 20 133/80 90 12/10/16 10:14 97.2 67 16 156/72 99 Nasal Cannula 3 12/10/16 10:00 64 16 142/68 99 Nasal Cannula 3 I/O 12/10/16 12/10/16 12/10/16 12/11/16 12/11/16 12/11/16 07:00 15:00 23:00 07:00 15:00 23:00 Intake Total 692 ml 870 ml 250 ml 240 ml Output Total 500 ml 250 ml 300 ml Balance 192 ml 620 ml 250 ml -60 ml Intake Oral 0 ml 120 ml 250 ml 240 ml IV Total 692 ml 150 ml Other 600 ml Output Urine Total 500 ml 200 ml 300 ml Estimated Blood Loss 50 ml # Voids 3 3 1 # Bowel Movements 0 0 0 0 Result Diagram: 12/11/16 0522 12/11/16 0522 Procedures Left hip fracture repair 12/10/16 Objective Remarks GENERAL: NAD, A&Ox1 SKIN: Warm and dry. HEAD: Normocephalic. EYES: No scleral icterus. No injection or drainage. NECK: Supple, trachea midline. No JVD or lymphadenopathy. CARDIOVASCULAR: Regular rate and rhythm without murmurs, gallops, or rubs. RESPIRATORY: Breath sounds equal bilaterally. No accessory muscle use. GASTROINTESTINAL: Abdomen soft, non-tender, nondistended. MUSCULOSKELETAL: No cyanosis, or edema. Limited range of motion of left hip post op, bandage in place. A/P Problem List: (1) Closed left hip fracture ICD Code: S72.002A (2) Dementia ICD Code: F03.90 (3) HTN (hypertension) ICD Code: I10 Assessment and Plan Assessment and plan 71 year old male status post repair of left hip fracture. Acute delirium occurred today after patient was coming out of anesthesia. Now improving. Will wean ativan and restraints as tolerated. Close left hip fracture Ortho Evra following Patient is now post surgical repair Physical therapy When necessary pain treatments Dementia Supportive care Exacerbated by anesthesia Improving Exacerbation may expected to resolve in 1-2 days Hypertension Valsartan resumes Follow blood pressure Problem Qualifiers (1) Closed left hip fracture: Qualified Code: S72.002A - Closed left hip fracture, initial encounter Ryan Thornton MD Dec 11, 2016 9:56 am
--- NOTE | 2016-12-11 09:56 | PD.ORT.PN ---
Subjective Subjective Remarks Stable but in restraints Objective Vitals Vital Signs Date Time Temp Pulse Resp B/P Pulse Ox O2 Delivery O2 Flow Rate FiO2 12/11/16 06:38 98.1 75 19 156/72 98 12/11/16 00:54 100.2 71 19 140/80 98 12/10/16 20:06 99.2 74 19 139/60 95 12/10/16 18:14 90 Nasal Cannula 3.00 12/10/16 16:00 95.8 71 17 120/66 95 12/10/16 12:09 98.6 69 20 133/80 90 12/10/16 10:14 97.2 67 16 156/72 99 Nasal Cannula 3 12/10/16 10:00 64 16 142/68 99 Nasal Cannula 3 I/O 12/10/16 12/10/16 12/10/16 12/11/16 12/11/16 12/11/16 07:00 15:00 23:00 07:00 15:00 23:00 Intake Total 692 ml 870 ml 250 ml 240 ml Output Total 500 ml 250 ml 300 ml Balance 192 ml 620 ml 250 ml -60 ml Intake Oral 0 ml 120 ml 250 ml 240 ml IV Total 692 ml 150 ml Other 600 ml Output Urine Total 500 ml 200 ml 300 ml Estimated Blood Loss 50 ml # Voids 3 3 1 # Bowel Movements 0 0 0 0 Result Diagram: 12/11/1652112/11/16521 Imaging Last 24 hours Impressions Chest X-Ray 12/09/16 1703 Signed Impressions: Service Date/Time: Friday, December 09, 2016 17:05 - CONCLUSION: No acute disease. Emile Grant MD Hip and Pelvis X-Ray 12/09/16 1541 Signed Impressions: Service Date/Time: Friday, December 09, 2016 16:42 - CONCLUSION: Nondisplaced impaction fracture through the neck of the left femur. Emile Grant MD Objective Remarks Left lower extremity: Clean dry dressings intact with minimal swelling. No pain with knee or ankle range of motion.. Distally intact sensation good capillary refills Assessment & Plan Assessment and Plan 1) Left Femoral Neck fx status post percutaneous pinning POD 1 Physical therapy toe-touch weightbearing left lower extremity Daily dressing changes beginning POD 2 Lovenox Incentive spirometry Plan for discharge to rehabilitation Follow-up with Dr. Rudolph or PA in 2 weeks Ignacio Uribe Jr. Dec 11, 2016 09:56
[2016-12-11] MEDS: MAGNESIUM HYDROXIDE SUSP 30 ML CUP PO PRN (10:10)
[2016-12-11] MEDS: CALCIUM/VITAMIN D 250 MG/125 U TAB PO SCH ×2 (10:10→21:40)
[2016-12-11] MEDS: LACTULOSE SYRUP 20 GM/30 ML CUP PO PRN (10:10)
[2016-12-11] MEDS: SENNOSIDES 8.6 MG TAB PO PRN (10:10)
[2016-12-11] MEDS: GLYCOPYRROLATE 1 MG TAB PO SCH ×2 (10:11→21:34)
[2016-12-11] MEDS: CARBIDOPA/LEVODOPA 25 MG/100 MG TAB PO SCH ×4 (10:11→21:34)
[2016-12-11] MEDS: PANTOPRAZOLE SOD 40 MG DELAYED RELEASE TAB PO SCH (10:11)
[2016-12-11] MEDS: DOCUSATE SODIUM 50 MG/SENNA 8.6 MG TAB PO SCH ×2 (10:12→21:32)
[2016-12-11] MEDS: CHOLECALCIFEROL (VIT D3) 1000 UNIT TAB PO SCH (10:12)
[2016-12-11] MEDS: VALSARTAN 160 MG TAB PO SCH (10:13)
[2016-12-11] MEDS: SODIUM CHLORIDE 0.9% FLUSH 5 ML FLUSH IVF SCH ×2 (10:14→21:32)
[2016-12-11] MEDS: RIVASTIGMINE 4.6 MG/24 HOUR PATCH T-DERMAL SCH (10:14)
[2016-12-11 12:00] VITALS: BP 143/65; PULSE 68; RESP 18; TEMP 97.5; O2SAT 96
[2016-12-11 16:00] VITALS: BP 175/77; PULSE 75; RESP 18; TEMP 99.1; O2SAT 96
[2016-12-11] MEDS: TAMSULOSIN HCL 0.4 MG CAP PO SCH (17:58)
[2016-12-11] MEDS: ACETAMINOPHEN/HYDROcodone 325 MG/5 MG TAB PO PRN (17:59)
[2016-12-11 20:00] VITALS: BP 107/55; PULSE 67; RESP 18; TEMP 97.8; O2SAT 95
[2016-12-11] MEDS: MELATONIN 5 MG TAB PO SCH (21:32)
[2016-12-11] MEDS: QUEtiapine FUMARATE 25 MG TAB PO PRN (21:33)
[2016-12-11] MEDS: ENOXAPARIN SODIUM 30 MG/0.3 ML SYRINGE SQ SCH (21:34)
[2016-12-12] VITALS (8 sets, daily range): BP systolic 117–145; BP diastolic 55–74; PULSE 55–71; RESP 16–19; TEMP 96.1–97.7; O2SAT 92–100
[2016-12-12] MEDS: ACETAMINOPHEN/HYDROcodone 325 MG/5 MG TAB PO PRN ×4 (02:00→20:50)
--- NOTE | 2016-12-12 07:24 | PD.ORT.PN ---
Subjective Subjective Remarks POD 2 s/p Perc pinning left hip still demented. in restraints. Objective Vitals Vital Signs Date Time Temp Pulse Resp B/P Pulse Ox O2 Delivery O2 Flow Rate FiO2 12/12/16 04:00 96.1 58 19 136/74 99 12/12/16 04:00 Nasal Cannula 3.00 12/12/16 00:00 Nasal Cannula 3.00 12/12/16 00:00 97.1 71 18 143/69 96 12/11/16 20:00 Nasal Cannula 3.00 12/11/16 20:00 97.8 67 18 107/55 95 12/11/16 19:00 20 12/11/16 16:00 99.1 75 18 175/77 96 12/11/16 12:00 97.5 68 18 143/65 96 12/11/16 08:00 97.9 62 16 154/67 98 I/O 12/11/16 12/11/16 12/11/16 12/12/16 12/12/16 12/12/16 07:00 15:00 23:00 07:00 15:00 23:00 Intake Total 240 ml 200 ml 720 ml 240 ml Output Total 300 ml 200 ml 400 ml Balance -60 ml 200 ml 520 ml -160 ml Intake Oral 240 ml 200 ml 720 ml 240 ml Output Urine Total 300 ml 200 ml 400 ml # Voids 1 2 3 # Bowel Movements 0 0 0 Result Diagram: 12/11/1652112/11/16 05 Imaging Last 24 hours Impressions Chest X-Ray 12/09/16 1703 Signed Impressions: Service Date/Time: Friday, December 09, 2016 17:05 - CONCLUSION: No acute disease. Emile Grant MD Hip and Pelvis X-Ray 12/09/16 1541 Signed Impressions: Service Date/Time: Friday, December 09, 2016 16:42 - CONCLUSION: Nondisplaced impaction fracture through the neck of the left femur. Emile Grant MD Objective Remarks Left lower extremity: Clean dry dressings intact with minimal swelling. No pain with knee or ankle range of motion.. Distally intact sensation good capillary refills Assessment & Plan Assessment and Plan 1) Left Femoral Neck fx status post percutaneous pinning POD 2 Physical therapy toe-touch weightbearing left lower extremity Daily dressing changes beginning POD 2 Lovenox Incentive spirometry Plan for discharge to rehabilitation once stable plan for him to be transferred back to [facility] in [place] which is he previous facility. OK to transfer when arrangements made per ortho Follow-up with Dr. Rudolph or PA in 2 weeks Mohit Cruz Dec 12, 2016 07:24
[2016-12-12] MEDS: GLYCOPYRROLATE 1 MG TAB PO SCH ×2 (09:00→20:50)
[2016-12-12] MEDS: PANTOPRAZOLE SOD 40 MG DELAYED RELEASE TAB PO SCH (09:04)
[2016-12-12] MEDS: LACTULOSE SYRUP 20 GM/30 ML CUP PO PRN (11:22)
[2016-12-12] MEDS: MAGNESIUM HYDROXIDE SUSP 30 ML CUP PO PRN (11:22)
[2016-12-12] MEDS: CARBIDOPA/LEVODOPA 25 MG/100 MG TAB PO SCH ×4 (11:23→20:50)
[2016-12-12] MEDS: CHOLECALCIFEROL (VIT D3) 1000 UNIT TAB PO SCH (11:23)
[2016-12-12] MEDS: REMOVE OLD PATCH T-DERMAL SCH (11:24)
[2016-12-12] MEDS: RIVASTIGMINE 4.6 MG/24 HOUR PATCH T-DERMAL SCH (11:24)
[2016-12-12] MEDS: VALSARTAN 160 MG TAB PO SCH (11:25)
[2016-12-12] MEDS: CALCIUM/VITAMIN D 250 MG/125 U TAB PO SCH ×2 (11:25→20:50)
[2016-12-12] MEDS: DOCUSATE SODIUM 50 MG/SENNA 8.6 MG TAB PO SCH ×2 (11:25→20:51)
[2016-12-12] MEDS: SENNOSIDES 8.6 MG TAB PO PRN (11:25)
[2016-12-12] MEDS: SODIUM CHLORIDE 0.9% FLUSH 5 ML FLUSH IVF SCH ×2 (11:28→20:51)
[2016-12-12] MEDS: SODIUM CHLOR 0.9% 1000 ML INJ 1,000 ML IV SCH ×2 (12:51→23:32)
--- NOTE | 2016-12-12 14:04 | HHI.PR ---
Subjective Remarks Though improving gradually the patient's delirium continues. He has not yet been able to get out of the bed to work with PT. No complaints are expressed. Objective Vital Signs Date Time Temp Pulse Resp B/P Pulse Ox O2 Delivery O2 Flow Rate FiO2 12/12/16 12:39 Nasal Cannula 2.00 12/12/16 12:39 97.0 62 16 145/68 98 12/12/16 08:00 96.9 55 16 128/66 100 12/12/16 08:00 Nasal Cannula 3.00 12/12/16 04:00 96.1 58 19 136/74 99 12/12/16 04:00 Nasal Cannula 3.00 12/12/16 00:00 Nasal Cannula 3.00 12/12/16 00:00 97.1 71 18 143/69 96 12/11/16 20:00 Nasal Cannula 3.00 12/11/16 20:00 97.8 67 18 107/55 95 12/11/16 19:00 20 12/11/16 16:00 99.1 75 18 175/77 96 I/O 12/11/16 12/11/16 12/11/16 12/12/16 12/12/16 12/12/16 07:00 15:00 23:00 07:00 15:00 23:00 Intake Total 240 ml 200 ml 720 ml 240 ml Output Total 300 ml 200 ml 400 ml Balance -60 ml 200 ml 520 ml -160 ml Intake Oral 240 ml 200 ml 720 ml 240 ml Output Urine Total 300 ml 200 ml 400 ml # Voids 1 2 3 # Bowel Movements 0 0 0 Result Diagram: 12/11/16 0522 12/11/16 0522 Procedures Left hip fracture repair 12/10/16 Objective Remarks GENERAL: NAD, A&Ox1 SKIN: Warm and dry. HEAD: Normocephalic. EYES: No scleral icterus. No injection or drainage. NECK: Supple, trachea midline. No JVD or lymphadenopathy. CARDIOVASCULAR: Regular rate and rhythm without murmurs, gallops, or rubs. RESPIRATORY: Breath sounds equal bilaterally. No accessory muscle use. GASTROINTESTINAL: Abdomen soft, non-tender, nondistended. MUSCULOSKELETAL: No cyanosis, or edema. Limited range of motion of left hip post op, bandage in place. A/P Problem List: (1) Closed left hip fracture ICD Code: S72.002A (2) Dementia ICD Code: F03.90 (3) HTN (hypertension) ICD Code: I10 Assessment and Plan Assessment and plan 71 year old male status post repair of left hip fracture. Acute delirium occurred today after patient was coming out of anesthesia. Ativan has been stopped. Patient will benefit greater once physical therapy is possible. Close left hip fracture Ortho Evra following Patient is now post surgical repair Physical therapy When necessary pain treatments Dementia Supportive care Exacerbated by anesthesia Improving Exacerbation is resolving slowly Hypertension Valsartan resumes Follow blood pressure Problem Qualifiers (1) Closed left hip fracture: Qualified Code: S72.002A - Closed left hip fracture, initial encounter Ryan Thornton MD Dec 12, 2016 2:04 pm
[2016-12-12] MEDS: TAMSULOSIN HCL 0.4 MG CAP PO SCH (16:48)
[2016-12-12] MEDS: ENOXAPARIN SODIUM 30 MG/0.3 ML SYRINGE SQ SCH (20:50)
[2016-12-13] VITALS (7 sets, daily range): BP systolic 110–162; BP diastolic 55–76; PULSE 63–72; RESP 16–19; TEMP 97.2–98.8; O2SAT 92–98
[2016-12-13] MEDS: ACETAMINOPHEN/HYDROcodone 325 MG/5 MG TAB PO PRN ×2 (06:25→15:34)
--- NOTE | 2016-12-13 07:52 | PD.ORT.PN ---
Subjective Subjective Remarks pt complains of post op left hip pain in bed with restraints, has sitter in room Objective Vitals Vital Signs Date Time Temp Pulse Resp B/P Pulse Ox O2 Delivery O2 Flow Rate FiO2 12/13/16 04:00 98.8 69 17 162/76 95 12/13/16 00:00 97.2 63 16 145/55 93 12/12/16 19:00 97.7 66 17 117/55 92 12/12/16 18:30 94 21 12/12/16 16:51 94 Room Air 12/12/16 16:46 96.5 70 16 143/72 94 12/12/16 14:00 Room Air 12/12/16 12:39 Nasal Cannula 2.00 12/12/16 12:39 97.0 62 16 145/68 98 12/12/16 08:00 96.9 55 16 128/66 100 12/12/16 08:00 Nasal Cannula 3.00 12/12/16 07:58 57 I/O 12/12/16 12/12/16 12/12/16 12/13/16 12/13/16 12/13/16 07:00 15:00 23:00 07:00 15:00 23:00 Intake Total 240 ml 480 ml 480 ml Output Total 400 ml 200 ml Balance -160 ml -200 ml 480 ml 480 ml Intake Oral 240 ml 480 ml 480 ml Output Urine Total 400 ml 200 ml # Voids 3 3 3 # Bowel Movements 0 1 0 0 Result Diagram: 12/11/16 0522 12/11/16 0522 Imaging Last 24 hours Impressions Chest X-Ray 12/09/16 1703 Signed Impressions: Service Date/Time: Friday, December 09, 2016 17:05 - CONCLUSION: No acute disease. Emile Grant MD Hip and Pelvis X-Ray 12/09/16 1541 Signed Impressions: Service Date/Time: Friday, December 09, 2016 16:42 - CONCLUSION: Nondisplaced impaction fracture through the neck of the left femur. Emile Grant MD Objective Remarks seen by Dr. Ankit Hendrix Left lower extremity: Clean dry dressings intact with minimal swelling. No pain with knee or ankle range of motion Distally intact sensation good capillary refills Assessment & Plan Assessment and Plan 1) Left Femoral Neck fx status post percutaneous pinning POD #3 Physical therapy toe-touch weightbearing left lower extremity Daily dressing changes Lovenox DVT prop Incentive spirometry Plan for discharge to rehabilitation once stable plan for him to be transferred back to [facility] in [place] which is he previous facility. OK to transfer when arrangements made per ortho Follow-up with Dr. Rudolph or PA in 2 weeks Elaine Lyons Dec 13, 2016 07:51
[2016-12-13] MEDS: CHOLECALCIFEROL (VIT D3) 1000 UNIT TAB PO SCH (09:11)
[2016-12-13] MEDS: PANTOPRAZOLE SOD 40 MG DELAYED RELEASE TAB PO SCH (09:11)
[2016-12-13] MEDS: DOCUSATE SODIUM 50 MG/SENNA 8.6 MG TAB PO SCH ×2 (09:11→19:50)
[2016-12-13] MEDS: CARBIDOPA/LEVODOPA 25 MG/100 MG TAB PO SCH ×4 (09:11→19:49)
[2016-12-13] MEDS: CALCIUM/VITAMIN D 250 MG/125 U TAB PO SCH ×2 (09:11→19:49)
[2016-12-13] MEDS: GLYCOPYRROLATE 1 MG TAB PO SCH ×2 (09:11→19:49)
[2016-12-13] MEDS: VALSARTAN 160 MG TAB PO SCH (09:11)
[2016-12-13] MEDS: SODIUM CHLORIDE 0.9% FLUSH 5 ML FLUSH IVF SCH ×2 (09:12→19:50)
[2016-12-13] MEDS: RIVASTIGMINE 4.6 MG/24 HOUR PATCH T-DERMAL SCH (09:12)
[2016-12-13] MEDS: REMOVE OLD PATCH T-DERMAL SCH (09:12)
[2016-12-13] MEDS: SODIUM CHLOR 0.9% 1000 ML INJ 1,000 ML IV SCH ×2 (12:00→22:00)
--- NOTE | 2016-12-13 12:57 | HHI.PR ---
Subjective Remarks Delirium is now improving. Able to wean off restraints as of this morning and patient has remained compliant thus far. He is able to work with PT today. Objective Vital Signs Date Time Temp Pulse Resp B/P Pulse Ox O2 Delivery O2 Flow Rate FiO2 12/13/16 09:25 21 12/13/16 04:00 98.8 69 17 162/76 95 12/13/16 00:00 97.2 63 16 145/55 93 12/12/16 19:00 97.7 66 17 117/55 92 12/12/16 18:30 94 21 12/12/16 16:51 94 Room Air 12/12/16 16:46 96.5 70 16 143/72 94 12/12/16 14:00 Room Air I/O 12/12/16 12/12/16 12/12/16 12/13/16 12/13/16 12/13/16 07:00 15:00 23:00 07:00 15:00 23:00 Intake Total 240 ml 480 ml 480 ml Output Total 400 ml 200 ml Balance -160 ml -200 ml 480 ml 480 ml Intake Oral 240 ml 480 ml 480 ml Output Urine Total 400 ml 200 ml # Voids 3 3 3 # Bowel Movements 0 1 0 0 Result Diagram: 12/11/1652112/11/16 0522 Procedures Left hip fracture repair 12/10/16 Objective Remarks GENERAL: NAD, A&Ox1 SKIN: Warm and dry. HEAD: Normocephalic. EYES: No scleral icterus. No injection or drainage. NECK: Supple, trachea midline. No JVD or lymphadenopathy. CARDIOVASCULAR: Regular rate and rhythm without murmurs, gallops, or rubs. RESPIRATORY: Breath sounds equal bilaterally. No accessory muscle use. GASTROINTESTINAL: Abdomen soft, non-tender, nondistended. MUSCULOSKELETAL: No cyanosis, or edema. Limited range of motion of left hip post op, bandage in place. A/P Problem List: (1) Closed left hip fracture ICD Code: S72.002A (2) Dementia ICD Code: F03.90 (3) HTN (hypertension) ICD Code: I10 Assessment and Plan Assessment and plan 71 year old male status post repair of left hip fracture. Wean off restraints. Avoid sedatives. Delirium is improving. If off restraints for 24 hours, he will be a candidate for discharge to SNF. Close left hip fracture Ortho Evra following Patient is now post surgical repair Physical therapy When necessary pain treatments Dementia Supportive care Exacerbated by anesthesia Improving Exacerbation is resolving slowly Hypertension Valsartan resumes Follow blood pressure Problem Qualifiers (1) Closed left hip fracture: Qualified Code: S72.002A - Closed left hip fracture, initial encounter Ryan Thornton MD Dec 13, 2016 12:57
[2016-12-13] MEDS: TAMSULOSIN HCL 0.4 MG CAP PO SCH (16:13)
[2016-12-13] MEDS: ENOXAPARIN SODIUM 30 MG/0.3 ML SYRINGE SQ SCH (19:50)
[2016-12-14] VITALS (9 sets, daily range): BP systolic 106–161; BP diastolic 54–90; PULSE 61–92; RESP 16–20; TEMP 97.6–98.3; O2SAT 92–98
[2016-12-14] MEDS: ACETAMINOPHEN/HYDROcodone 325 MG/5 MG TAB PO PRN (05:56)
[2016-12-14] MEDS: SODIUM CHLOR 0.9% 1000 ML INJ 1,000 ML IV SCH (08:00)
--- NOTE | 2016-12-14 08:41 | PD.ORT.PN ---
Subjective Subjective Remarks pt sleeping still in restraints Objective Vitals Vital Signs Date Time Temp Pulse Resp B/P Pulse Ox O2 Delivery O2 Flow Rate FiO2 12/14/16 07:36 98.0 63 18 161/78 98 12/14/16 04:00 97.6 70 19 146/66 92 12/14/16 00:00 97.6 92 20 106/54 94 12/13/16 21:00 71 12/13/16 20:00 98.2 71 19 155/75 93 12/13/16 16:00 98.3 72 18 151/70 94 12/13/16 12:00 97.2 67 18 157/74 98 12/13/16 09:25 21 I/O 12/13/16 12/13/16 12/13/16 12/14/16 12/14/16 12/14/16 07:00 15:00 23:00 07:00 15:00 23:00 Intake Total 480 ml 1120 ml 480 ml Output Total 925 ml Balance 480 ml 195 ml 480 ml Intake Oral 480 ml 1120 ml 480 ml Output Urine Total 925 ml # Voids 3 1 1 # Bowel Movements 0 1 1 Result Diagram: 12/11/16 0522 12/11/16 0522 Imaging Last 24 hours Impressions Chest X-Ray 12/09/16 1703 Signed Impressions: Service Date/Time: Friday, December 09, 2016 17:05 - CONCLUSION: No acute disease. Emile Grant MD Hip and Pelvis X-Ray 12/09/16 1541 Signed Impressions: Service Date/Time: Friday, December 09, 2016 16:42 - CONCLUSION: Nondisplaced impaction fracture through the neck of the left femur. Emile Grant MD Objective Remarks seen by Dr. Ankit Hendrix Left lower extremity: Clean dry dressings intact with minimal swelling. No pain with knee or ankle range of motion Distally intact sensation good capillary refills Assessment & Plan Assessment and Plan 1) Left Femoral Neck fx status post percutaneous pinning POD #4 Physical therapy toe-touch weightbearing left lower extremity Daily dressing changes Lovenox DVT prop Incentive spirometry did well yesterday with therapy, became very agitated and aggressive in evening and had to be put back in restraints d/c norco, tylenol for pain Plan for discharge to rehabilitation once stable plan for him to be transferred back to [facility] in [place] which is he previous facility. OK to transfer when arrangements made per ortho Follow-up with Dr. Rudolph or PA in 2 weeks Elaine Lyons Dec 14, 2016 08:40
[2016-12-14] MEDS: REMOVE OLD PATCH T-DERMAL SCH (09:00)
[2016-12-14] MEDS: SODIUM CHLORIDE 0.9% FLUSH 5 ML FLUSH IVF SCH ×2 (09:00→20:17)
--- NOTE | 2016-12-14 09:02 | HHI.PR ---
Subjective Remarks Delirium had improved yesterday morning. Patient had to be placed back on restraints in the afternoon secondary to recurrence of delirium with combativeness. Case discussed with orthopedics. Right now he will have cessation of his narcotics to see if this helps with his cognitive status. If cognitive status improves we'll do another trial off restraints. Objective Vital Signs Date Time Temp Pulse Resp B/P Pulse Ox O2 Delivery O2 Flow Rate FiO2 12/14/16 07:36 98.0 63 18 161/78 98 12/14/16 04:00 97.6 70 19 146/66 92 12/14/16 00:00 97.6 92 20 106/54 94 12/13/16 21:00 71 12/13/16 20:00 98.2 71 19 155/75 93 12/13/16 16:00 98.3 72 18 151/70 94 12/13/16 12:00 97.2 67 18 157/74 98 12/13/16 09:25 21 I/O 12/13/16 12/13/16 12/13/16 12/14/16 12/14/16 12/14/16 07:00 15:00 23:00 07:00 15:00 23:00 Intake Total 480 ml 1120 ml 480 ml Output Total 925 ml Balance 480 ml 195 ml 480 ml Intake Oral 480 ml 1120 ml 480 ml Output Urine Total 925 ml # Voids 3 1 1 # Bowel Movements 0 1 1 Result Diagram: 12/11/16 0522 12/11/16 0522 Procedures Left hip fracture repair 12/10/16 Objective Remarks GENERAL: NAD, A&Ox1 SKIN: Warm and dry. HEAD: Normocephalic. EYES: No scleral icterus. No injection or drainage. NECK: Supple, trachea midline. No JVD or lymphadenopathy. CARDIOVASCULAR: Regular rate and rhythm without murmurs, gallops, or rubs. RESPIRATORY: Breath sounds equal bilaterally. No accessory muscle use. GASTROINTESTINAL: Abdomen soft, non-tender, nondistended. MUSCULOSKELETAL: No cyanosis, or edema. Limited range of motion of left hip post op, bandage in place. A/P Problem List: (1) Closed left hip fracture ICD Code: S72.002A (2) Dementia ICD Code: F03.90 (3) HTN (hypertension) ICD Code: I10 Assessment and Plan Assessment and plan 71 year old male status post repair of left hip fracture. Avoiding sedatives. Narcotics were held today. Monitor for improvement in cognitive status. Repeat trial off restraints once patient is improved. Close left hip fracture Ortho Evra following Patient is now post surgical repair Physical therapy When necessary pain treatments Dementia Delirium Supportive care Exacerbated by anesthesia Improving Exacerbation is resolving slowly Holding sedatives Holding narcotics Hypertension Valsartan resumes Follow blood pressure Problem Qualifiers (1) Closed left hip fracture: Qualified Code: S72.002A - Closed left hip fracture, initial encounter Ryan Thornton MD Dec 14, 2016 09:02
[2016-12-14] MEDS: PANTOPRAZOLE SOD 40 MG DELAYED RELEASE TAB PO SCH (11:45)
[2016-12-14] MEDS: CARBIDOPA/LEVODOPA 25 MG/100 MG TAB PO SCH ×4 (11:46→20:16)
[2016-12-14] MEDS: GLYCOPYRROLATE 1 MG TAB PO SCH ×2 (11:46→20:16)
[2016-12-14] MEDS: VALSARTAN 160 MG TAB PO SCH (11:46)
[2016-12-14] MEDS: CALCIUM/VITAMIN D 250 MG/125 U TAB PO SCH ×2 (11:46→20:16)
[2016-12-14] MEDS: CHOLECALCIFEROL (VIT D3) 1000 UNIT TAB PO SCH (11:46)
[2016-12-14] MEDS: DOCUSATE SODIUM 50 MG/SENNA 8.6 MG TAB PO SCH ×2 (11:49→20:17)
[2016-12-14] MEDS: RIVASTIGMINE 4.6 MG/24 HOUR PATCH T-DERMAL SCH (11:50)
[2016-12-14] MEDS: ACETAMINOPHEN 325 MG TAB PO PRN (15:04)
[2016-12-14] MEDS: TAMSULOSIN HCL 0.4 MG CAP PO SCH (17:05)
[2016-12-14] MEDS: ENOXAPARIN SODIUM 30 MG/0.3 ML SYRINGE SQ SCH (20:17)
[2016-12-15] VITALS (7 sets, daily range): BP systolic 120–158; BP diastolic 63–81; PULSE 63–70; RESP 16–22; TEMP 96.1–97.9; O2SAT 95–97
--- NOTE | 2016-12-15 06:31 | PD.ORT.PN ---
Subjective Subjective Remarks POD 5 s/p Perc pinning left hip resting comfortably. Objective Vitals Vital Signs Date Time Temp Pulse Resp B/P Pulse Ox O2 Delivery O2 Flow Rate FiO2 12/15/16 04:00 96.1 63 22 158/81 95 12/15/16 00:00 97.6 68 20 146/72 95 12/14/16 20:49 61 12/14/16 20:00 97.8 67 20 147/90 95 12/14/16 16:00 97.7 64 17 130/69 98 12/14/16 11:45 98 Room Air 12/14/16 11:38 98.3 63 16 160/77 93 12/14/16 10:35 94 21 12/14/16 08:01 63 12/14/16 07:36 98.0 63 18 161/78 98 I/O 12/14/16 12/14/16 12/14/16 12/15/16 12/15/16 12/15/16 07:00 15:00 23:00 07:00 15:00 23:00 Intake Total 480 ml 560 ml 780 ml 240 ml Output Total 500 ml Balance 480 ml 60 ml 780 ml 240 ml Intake Oral 480 ml 560 ml 780 ml 240 ml Output Urine Total 500 ml # Voids 1 2 2 2 # Bowel Movements 1 1 0 2 Result Diagram: 12/11/1652112/11/16 0522 Imaging Last 24 hours Impressions Chest X-Ray 12/09/16 1703 Signed Impressions: Service Date/Time: Friday, December 09, 2016 17:05 - CONCLUSION: No acute disease. Emile Grant MD Hip and Pelvis X-Ray 12/09/16 1541 Signed Impressions: Service Date/Time: Friday, December 09, 2016 16:42 - CONCLUSION: Nondisplaced impaction fracture through the neck of the left femur. Emile Grant MD Objective Remarks Left lower extremity: Clean dry dressings intact with minimal swelling. No pain with knee or ankle range of motion Distally intact sensation good capillary refills Assessment & Plan Assessment and Plan 1) Left Femoral Neck fx status post percutaneous pinning POD #5 Physical therapy toe-touch weightbearing left lower extremity Daily dressing changes Lovenox DVT prop Incentive spirometry did well yesterday with therapy, became very agitated and aggressive in evening and had to be put back in restraints d/c norco, tylenol for pain Plan for discharge to rehabilitation once stable plan for him to be transferred back to [facility] in [place] which is he previous facility. OK to transfer from ortho standpoint when arrangements made Follow-up with Dr. Rudolph or PA in 2 weeks Mohit Cruz Dec 15, 2016 06:31
[2016-12-15] MEDS: CARBIDOPA/LEVODOPA 25 MG/100 MG TAB PO SCH ×4 (08:57→20:29)
[2016-12-15] MEDS: REMOVE OLD PATCH T-DERMAL SCH (08:58)
[2016-12-15] MEDS: RIVASTIGMINE 4.6 MG/24 HOUR PATCH T-DERMAL SCH (08:58)
[2016-12-15] MEDS: CHOLECALCIFEROL (VIT D3) 1000 UNIT TAB PO SCH (08:59)
[2016-12-15] MEDS: VALSARTAN 160 MG TAB PO SCH (08:59)
[2016-12-15] MEDS: GLYCOPYRROLATE 1 MG TAB PO SCH ×2 (08:59→20:28)
[2016-12-15] MEDS: DOCUSATE SODIUM 50 MG/SENNA 8.6 MG TAB PO SCH ×2 (08:59→20:27)
[2016-12-15] MEDS: CALCIUM/VITAMIN D 250 MG/125 U TAB PO SCH ×2 (08:59→20:28)
[2016-12-15] MEDS: PANTOPRAZOLE SOD 40 MG DELAYED RELEASE TAB PO SCH (08:59)
[2016-12-15] MEDS: SODIUM CHLORIDE 0.9% FLUSH 5 ML FLUSH IVF SCH ×2 (09:00→20:38)
[2016-12-15] MEDS: ACETAMINOPHEN 325 MG TAB PO PRN ×2 (09:01→20:27)
--- NOTE | 2016-12-15 10:19 | HHI.DS ---
Discharge Summary Admission Date December 09, 2016 at 5:58 pm Discharge Date: Dec 15, 2016 Admitting Diagnosis Left Femoral Neck Fracture, Mechanical Fall (1) Closed left hip fracture ICD Code: S72.002A Procedures Surgical repair of left proximal femur fracture Brief History - From Admission Mr. Monzon is a 71-year-old male. He has a history of dementia and hypertension. Dementia limits direct history. He can recall that his father had Alzheimer and and his mother had coronary artery disease. She does have a distant history of smoking but is not currently smoking or drinking any alcohol or doing any drugs. He fell today and has a left-sided proximal heme or fracture. The only surgeries he can recall her bilateral knee surgery, appendectomy and a tonsillectomy in the past. he denies any lung disease and says he has not had any problems with previous surgeries. No other complaints at this time. Ages the patient's primary risk for surgery she does not appear to have any heart or lung disease to inhibit him from a surgery in the morning. CBC/BMP: 12/11/16 0522 12/11/16 0522 Imaging Last Impressions Hip X-Ray 12/10/16 0000 Signed Impressions: Service Date/Time: Saturday, December 10, 2016 08:40 - CONCLUSION: Successful ORIF. Markos Castillo MD Chest X-Ray 12/09/16 1703 Signed Impressions: Service Date/Time: Friday, December 09, 2016 17:05 - CONCLUSION: No acute disease. Emile Grant MD Hip and Pelvis X-Ray 12/09/16 1541 Signed Impressions: Service Date/Time: Friday, December 09, 2016 16:42 - CONCLUSION: Nondisplaced impaction fracture through the neck of the left femur. Emile Grant MD Hospital Course Mr. Monzon is a 70-year-old male admitted with a left femur fracture. Surgical repair went well. Patient has dementia at baseline but was ambulatory. With anesthesia and narcotics the patient's dementia worsened and he had problems with acute delirium for about 3 days postop. He is now transitioning out of the facies and returning to his normal baseline dementia status. He will be off restraints for 24 hours at 12:45 PM today. At this point he will be medically cleared for discharge to a senior care facility. Outpatient follow-up with orthopedics as planned. Pt Condition on Discharge: Stable Discharge Disposition: Discharge to SNF Discharge Time: > 30 minutes Discharge Instructions Follow up Referrals: Orthopedics - 12/24/16 with orthopedics PCP Follow-up - 2 Weeks New Medications: Calcium Carbonate-Vitamin D (Calcium 600+D 200) 600-200 Mg-Unit Tab 1 TAB PO BID Nutritional Supplement Days 30 Ref 0 TAB Cholecalciferol (Vitamin D3) 2,000 Unit Cap 2000 UNITS PO DAILY Nutritional Supplement #56 Ref 0 CAP Ergocalciferol (Ergocalciferol) 50,000 Unit Cap 75418 UNITS PO Q7D Nutritional Supplement #56 CAP Hydrocodone-Acetaminophen (Hydrocodone-Acetaminophen) 7.5-325 mg Tab 1 TAB PO Q4H PRN PAIN #60 Ref 0 TAB Rivaroxaban (Xarelto) 10 Mg Tab 10 MG PO DAILY Blood Clot Prevention #14 Ref 0 TAB Walker/Adult/Folding (Walker/Adult/Folding) 1 Mis Mis 1 EA .ROUTE DIRECTED #1 Ref 0 EA Continued Medications: Amlodipine (Amlodipine) 10 Mg Tab 10 MG PO DAILY Blood Pressure Management #30 Ref 0 TAB Carbidopa-Levodopa (Sinemet) 25-100 Mg Tab 2 TAB PO QID Parkinson Disease Mgmt #90 Ref 0 TAB Glycopyrrolate (Glycopyrrolate) 1 Mg Tab 1 MG PO BID DROOLING #60 Ref 0 TAB Melatonin (Gnp Melatonin Maximum Str) 5 Mg Tab 10 MG PO HS Pantoprazole (Protonix) 40 Mg Tab 40 MG PO DAILY Reflux #30 Ref 0 TAB Pimavanserin (Nuplazid) 17 Mg Tab 34 MG PO DAILY Parkinson Disease Mgmt Quetiapine (Seroquel) 25 Mg Tab 25 MG PO BID PRN ANXIETY #60 Ref 0 TAB Rivastigmine (Rivastigmine) 1.5 Mg Cap 1.5 MG PO BIDPC Dementia #60 Ref 0 CAP Tamsulosin (Tamsulosin) 0.4 Mg Cap 0.8 MG PO AC DINNER Manage Prostate Problems #60 Ref 0 CAP Valsartan (Valsartan) 160 Mg Tab 160 MG PO DAILY #30 Ref 0 TAB Ryan Thornton MD 5, 2017 10:19 am
[2016-12-15] MEDS: TAMSULOSIN HCL 0.4 MG CAP PO SCH (17:48)
[2016-12-15] MEDS: PIMAVANSERIN PO SCH (17:49)
[2016-12-15] MEDS: ENOXAPARIN SODIUM 30 MG/0.3 ML SYRINGE SQ SCH (20:28)
[2016-12-16] VITALS (10 sets, daily range): BP systolic 100–160; BP diastolic 53–80; PULSE 54–70; RESP 16–19; TEMP 95.9–97.9; O2SAT 95–99
--- NOTE | 2016-12-16 06:53 | PD.ORT.PN ---
Subjective Subjective Remarks Stable Objective Vitals Vital Signs Date Time Temp Pulse Resp B/P Pulse Ox O2 Delivery O2 Flow Rate FiO2 12/16/16 03:33 97.7 63 18 158/80 99 12/16/16 02:13 61 12/16/16 00:02 97.1 70 18 140/69 97 12/15/16 20:30 64 12/15/16 20:10 97.0 70 19 142/70 95 12/15/16 16:22 97.2 69 18 120/74 97 12/15/16 12:28 97.9 70 18 130/63 97 12/15/16 08:50 96.4 63 16 124/67 96 I/O 12/15/16 12/15/16 12/15/16 12/16/16 12/16/16 12/16/16 07:00 15:00 23:00 07:00 15:00 23:00 Intake Total 240 ml 980 ml 360 ml Output Total 450 ml Balance 240 ml 980 ml -90 ml Intake Oral 240 ml 980 ml 360 ml Output Urine Total 450 ml # Voids 2 4 2 # Bowel Movements 2 6 1 Imaging Last 24 hours Impressions Chest X-Ray 12/09/16 1703 Signed Impressions: Service Date/Time: Friday, December 09, 2016 17:05 - CONCLUSION: No acute disease. Emile Grant MD Hip and Pelvis X-Ray 12/09/16 1541 Signed Impressions: Service Date/Time: Friday, December 09, 2016 16:42 - CONCLUSION: Nondisplaced impaction fracture through the neck of the left femur. Emile Grant MD Objective Remarks Left lower extremity: Clean dry dressings intact with minimal swelling. No pain with knee or ankle range of motion Distally intact sensation good capillary refills Assessment & Plan Assessment and Plan 1) Left Femoral Neck fx status post percutaneous pinning POD #6 Physical therapy toe-touch weightbearing left lower extremity Daily dressing changes Lovenox DVT prop Incentive spirometry did well yesterday with therapy, became very agitated and aggressive in evening and had to be put back in restraints d/c norco, tylenol for pain Plan for discharge to rehabilitation once stable plan for him to be transferred back to [facility] in [place] which is he previous facility. OK to transfer from ortho standpoint when arrangements made Follow-up with Dr. Rudolph or PA in 2 weeks Ignacio Uribe Jr. Dec 16, 2016 06:53
[2016-12-16] MEDS: VALSARTAN 160 MG TAB PO SCH (08:14)
[2016-12-16] MEDS: DOCUSATE SODIUM 50 MG/SENNA 8.6 MG TAB PO SCH ×2 (08:14→20:55)
[2016-12-16] MEDS: GLYCOPYRROLATE 1 MG TAB PO SCH ×2 (08:14→20:55)
[2016-12-16] MEDS: CALCIUM/VITAMIN D 250 MG/125 U TAB PO SCH ×2 (08:15→20:55)
[2016-12-16] MEDS: CHOLECALCIFEROL (VIT D3) 1000 UNIT TAB PO SCH (08:15)
[2016-12-16] MEDS: CARBIDOPA/LEVODOPA 25 MG/100 MG TAB PO SCH ×4 (08:15→20:56)
[2016-12-16] MEDS: RIVASTIGMINE 4.6 MG/24 HOUR PATCH T-DERMAL SCH (08:17)
[2016-12-16] MEDS: SODIUM CHLORIDE 0.9% FLUSH 5 ML FLUSH IVF SCH ×2 (08:18→20:58)
[2016-12-16] MEDS: PIMAVANSERIN PO SCH (08:18)
[2016-12-16] MEDS: PANTOPRAZOLE SOD 40 MG DELAYED RELEASE TAB PO SCH (08:25)
[2016-12-16] MEDS: REMOVE OLD PATCH T-DERMAL SCH (08:25)
--- NOTE | 2016-12-16 13:49 | HHI.PR ---
Subjective Remarks Patient discharged 12/15/16. Awaiting placement at a assisted facility. Objective Vitals Vital Signs Date Time Temp Pulse Resp B/P Pulse Ox O2 Delivery O2 Flow Rate FiO2 12/16/16 13:25 97.6 60 16 139/74 97 12/16/16 08:22 97.2 59 16 143/68 96 12/16/16 03:33 97.7 63 18 158/80 99 12/16/16 02:13 61 12/16/16 00:02 97.1 70 18 140/69 97 12/15/16 20:30 64 12/15/16 20:10 97.0 70 19 142/70 95 12/15/16 16:22 97.2 69 18 120/74 97 I/O 12/15/16 12/15/16 12/15/16 12/16/16 12/16/16 12/16/16 07:00 15:00 23:00 07:00 15:00 23:00 Intake Total 240 ml 980 ml 360 ml 240 ml Output Total 450 ml 600 ml Balance 240 ml 980 ml -90 ml -360 ml Intake Oral 240 ml 980 ml 360 ml 240 ml Output Urine Total 450 ml 600 ml # Voids 2 4 2 1 # Bowel Movements 2 6 1 1 Procedures Surgical repair of left proximal femur fracture A/P Problem List: (1) Closed left hip fracture ICD Code: S72.002A Status: Acute Assessment and Plan Assessment and plan 71 year old male status post repair of left hip fracture. Prolonged stay secondary to complications of dementia with acute delirium. Patient has returned to baseline status and his discharge 12/15/16 to assisted facility. Problem Qualifiers (1) Closed left hip fracture: Qualified Code: S72.002A - Closed left hip fracture, initial encounter Ryan Thornton MD Dec 16, 2016 1:49 pm
[2016-12-16] MEDS: TAMSULOSIN HCL 0.4 MG CAP PO SCH (17:03)
[2016-12-16] MEDS: ACETAMINOPHEN 325 MG TAB PO PRN (20:56)
[2016-12-16] MEDS: ENOXAPARIN SODIUM 30 MG/0.3 ML SYRINGE SQ SCH (20:57)
[2016-12-17 04:08] VITALS: BP 173/78; PULSE 62; RESP 18; TEMP 96.7; O2SAT 95
[2016-12-17 04:51] VITALS: BP 162/75
--- NOTE | 2016-12-17 06:31 | PD.ORT.PN ---
Subjective Subjective Remarks Stable, dementia Objective Vitals Vital Signs Date Time Temp Pulse Resp B/P Pulse Ox O2 Delivery O2 Flow Rate FiO2 12/17/16 04:51 162/75 12/17/16 04:08 96.7 62 18 173/78 95 12/16/16 23:50 97.2 60 18 132/73 95 12/16/16 20:45 54 12/16/16 19:59 97.9 60 19 100/53 95 12/16/16 16:43 59 12/16/16 16:10 95.9 64 16 160/73 97 12/16/16 13:25 97.6 60 16 139/74 97 12/16/16 08:22 97.2 59 16 143/68 96 I/O 12/16/16 12/16/16 12/16/16 12/17/16 12/17/16 12/17/16 07:00 15:00 23:00 07:00 15:00 23:00 Intake Total 240 ml 890 ml 360 ml Output Total 600 ml 200 ml Balance -360 ml 890 ml 160 ml Intake Oral 240 ml 890 ml 360 ml Output Urine Total 600 ml 200 ml # Voids 1 3 2 # Bowel Movements 1 0 Imaging Last 24 hours Impressions Chest X-Ray 12/09/16 1703 Signed Impressions: Service Date/Time: Friday, December 09, 2016 17:05 - CONCLUSION: No acute disease. Emile Grant MD Hip and Pelvis X-Ray 12/09/16 1541 Signed Impressions: Service Date/Time: Friday, December 09, 2016 16:42 - CONCLUSION: Nondisplaced impaction fracture through the neck of the left femur. Emile Grant MD Objective Remarks Left lower extremity: Clean dry dressings intact with minimal swelling. No pain with knee or ankle range of motion Distally intact sensation good capillary refills Assessment & Plan Assessment and Plan 1) Left Femoral Neck fx status post percutaneous pinning POD #7 Physical therapy toe-touch weightbearing left lower extremity Daily dressing changes Lovenox DVT prop Incentive spirometry tylenol for pain Plan for discharge to rehabilitation when bed available plan for him to be transferred back to [facility] in [place] which is he previous facility. OK to transfer from ortho standpoint when arrangements made Follow-up with Dr. Rudolph or PA in 2 weeks Ignacio Uribe Jr. Dec 17, 2016 06:31
[2016-12-17 08:00] VITALS: BP 157/73; PULSE 60; RESP 18; TEMP 96.3; O2SAT 97
[2016-12-17] MEDS: PIMAVANSERIN PO SCH (08:54)
[2016-12-17] MEDS: VALSARTAN 160 MG TAB PO SCH (08:54)
[2016-12-17] MEDS: CARBIDOPA/LEVODOPA 25 MG/100 MG TAB PO SCH (08:54)
[2016-12-17] MEDS: DOCUSATE SODIUM 50 MG/SENNA 8.6 MG TAB PO SCH (08:55)
[2016-12-17] MEDS: CALCIUM/VITAMIN D 250 MG/125 U TAB PO SCH (08:55)
[2016-12-17] MEDS: GLYCOPYRROLATE 1 MG TAB PO SCH (08:55)
[2016-12-17] MEDS: CHOLECALCIFEROL (VIT D3) 1000 UNIT TAB PO SCH (08:55)
[2016-12-17] MEDS: RIVASTIGMINE 4.6 MG/24 HOUR PATCH T-DERMAL SCH (08:55)
[2016-12-17] MEDS: PANTOPRAZOLE SOD 40 MG DELAYED RELEASE TAB PO SCH (08:55)
[2016-12-17] MEDS: REMOVE OLD PATCH T-DERMAL SCH (08:56)
[2016-12-17] MEDS ORDERED: ERGOCALCIFEROL (VIT D2) 50,000 UNIT CAP PO SCH (09:00)
[2016-12-17] MEDS: SODIUM CHLORIDE 0.9% FLUSH 5 ML FLUSH IVF SCH (09:14)
--- NOTE | 2016-12-17 10:13 | HHI.PR ---
Subjective Remarks Patient discharged 12/15/16. Discharge to SNF pending. Objective Vitals Vital Signs Date Time Temp Pulse Resp B/P Pulse Ox O2 Delivery O2 Flow Rate FiO2 12/17/16 08:00 96.3 60 18 157/73 97 12/17/16 04:51 162/75 12/17/16 04:08 96.7 62 18 173/78 95 12/16/16 23:50 97.2 60 18 132/73 95 12/16/16 20:45 54 12/16/16 19:59 97.9 60 19 100/53 95 12/16/16 16:43 59 12/16/16 16:10 95.9 64 16 160/73 97 12/16/16 13:25 97.6 60 16 139/74 97 I/O 12/16/16 12/16/16 12/16/16 12/17/16 12/17/16 12/17/16 07:00 15:00 23:00 07:00 15:00 23:00 Intake Total 240 ml 890 ml 360 ml 240 ml Output Total 600 ml 200 ml Balance -360 ml 890 ml 160 ml 240 ml Intake Oral 240 ml 890 ml 360 ml 240 ml Output Urine Total 600 ml 200 ml # Voids 1 3 2 1 # Bowel Movements 1 0 0 Procedures Surgical repair of left proximal femur fracture A/P Problem List: (1) Closed left hip fracture ICD Code: S72.002A Status: Acute Assessment and Plan Assessment and plan 71 year old male status post repair of left hip fracture. Prolonged stay secondary to complications of dementia with acute delirium. Patient has returned to baseline status and [facility] Problem Qualifiers (1) Closed left hip fracture: Qualified Code: S72.002A - Closed left hip fracture, initial encounter Ryan Thornton MD Dec 17, 2016 10:13
== END 2016-12-17 10:47 | DRG 481 ==
LOC: NEPD 14:47 → NEDA 17:58 → N06B 19:34 → N06A 12-12 11:03
PROVIDERS: ADMIT Hospitalist; ATTEND Hospitalist
PROC: 0QS7XZZ Reposition Left Upper Femur, External Approach (ICD-10-PCS; 2016-12-10)
PROC: 0QH704Z Insertion of Internal Fixation Device into Left Upper Femur, Open Approach (ICD-10-PCS; principal; 2016-12-10 07:56)
DX: S72.002A Fracture of unspecified part of neck of left femur, initial encounter for closed fracture (principal); F03.91 Unspecified dementia, unspecified severity, with behavioral disturbance; F05 Delirium due to known physiological condition; G20 Parkinson's disease; S50.312A Abrasion of left elbow, initial encounter; W01.0XXA Fall on same level from slipping, tripping and stumbling without subsequent striking against object, initial encounter; Z78.1 Physical restraint status; R41.0 Disorientation, unspecified; T40.605A Adverse effect of unspecified narcotics, initial encounter; T41.205A Adverse effect of unspecified general anesthetics, initial encounter; Y92.239 Unspecified place in hospital as the place of occurrence of the external cause; I10 Essential (primary) hypertension; E78.5 Hyperlipidemia, unspecified; Z79.82 Long term (current) use of aspirin; Z87.891 Personal history of nicotine dependence
CPT/HCPCS: 71010; 73502; 76000; 80048; 80053; 82306; 85025; 85027; 85610; 85730; 86850; 86900; 86901; 93005; 96374; 96375; C1713; C1769; J0690; J1170; J1580; J1650; J2060; J2270; J2405; J3010; J3370; J7030; J7050

== ENCOUNTER 2017-02-02 18:10 | Inpatient (IN) | payer MEDICARE, BC ==
[~2017-02-02] VITALS: Ht 177.8 cm; Wt 69.3 kg
[~2017-02-02 18:10] MED LIST: AMLO10TA2 PO; CALCTAB19 PO; ERGO1CAP30 PO; GLYC1TAB17 PO; GNP5TAB6 PO; HYDR-3580 PO; PROT40TA PO; RIVA1.5C PO; SERO25TA PO; SINE25TA PO; TAMS0.4C4 PO; VALS1TAB65 PO; VITA2000 PO; WALKER/ADULT/FO1 MIS; XARE10TA PO; [UNRECOGNIZED DRUG - CODE] PO
[2017-02-02 18:25] VITALS: BP 174/77; PULSE 65; RESP 16; TEMP 98.6; O2SAT 99
[2017-02-02 18:40] VITALS: RESP 16; O2SAT 99
[2017-02-02] MEDS ORDERED: HYDROmorphone HCL PF 1 MG/ML VIAL IVS ONE (18:45)
[2017-02-02] MEDS ORDERED: SODIUM CHLORIDE 0.9% FLUSH 10 ML FLUSH IVF PRN (18:45)
[2017-02-02] MEDS ORDERED: ONDANSETRON HCL 4 MG/2 ML VIAL IVP ONE (18:45)
--- NOTE | 2017-02-02 19:04 | PD ---
HPI Chief Complaint: Injury Time Seen by Provider: 18:35 Travel History International Travel<30 days: No Contact w/Intl Traveler<30days: No Traveled to known affect area: No History of Present Illness HPI 71-year-old male with history of Parkinson's disorder, presents to the ER today brought in because he lost balance and fell onto the right side, currently complaining of right hip pain. He states is currently 8 out of 10. He denies any head injury or loss of consciousness. He denies any chest pains, shortness of breath, or any other injuries. Modifying Factors: None Associated Signs & Symptoms: Fall, right hip injury Risk Factors: Elderly, Parkinson's disorder PFSH Past Medical History Hx Anticoagulant Therapy: Yes (ASA) Arthritis: Yes Asthma: No Anxiety: Yes Depression: Yes Heart Rhythm Problems: Yes Cancer: No Cardiovascular Problems: Yes (HTN) High Cholesterol: No Chest Pain: Yes Congestive Heart Failure: Yes COPD: No Cerebrovascular Accident: No Dementia: Yes Endocrine: No Gastrointestinal Disorders: Yes (hemorrhoids) GERD: Yes Genitourinary: Yes Hiatal Hernia: No Hypertension: Yes Immune Disorder: No Implanted Vascular Access Dvce: Yes Kidney Stones: No Musculoskeletal: Yes (Knee replacements) Neurologic: Yes (parkinson, dementia) Parkinson's Disease: Yes Psychiatric: Yes Reproductive: No Respiratory: Yes Migraines: Yes Renal Failure: No Seizures: No Sleep Apnea: No Ulcer: No Influenza Vaccination: Yes Past Surgical History Abdominal Surgery: No AICD: No Arteriovenous Shunt: No Cardiac Surgery: No Ear Surgery: No Endocrine Surgery: No Eye Surgery: No Genitourinary Surgery: No Gynecologic Surgery: No Insulin Pump: No Joint Replacement: Yes (bilat knees replacement) Oral Surgery: No Pacemaker: No Thoracic Surgery: No Social History Alcohol Use: No Tobacco Use: No Substance Use: No Allergies-Medications (Allergen,Severity, Reaction): Coded Allergies: Haldol (Verified Allergy, Severe, COMBATIVE, 02/02/17) Oxybutynin (Verified Allergy, Unknown, 02/02/17) Uncoded Allergies: steroids (Adverse Reaction, Severe, Confusion, 12/09/16) patient had episode in the past where he became extremely confused and combative after receiving steroids and his said that it is only to be given as a last resort. Reported Meds & Prescriptions Reported Meds & Active Scripts Active Calcium 600+D 200 (Calcium Carbonate-Vitamin D) 600-200 Mg-Unit Tab 1 Tab PO BID 30 Days Vitamin D3 (Cholecalciferol) 2,000 Unit Cap 2,000 Units PO DAILY Ergocalciferol 50,000 Unit Cap 50,000 Units PO Q7D Xarelto (Rivaroxaban) 10 Mg Tab 10 Mg PO DAILY Hydrocodone-Acetaminophen 7.5-325 mg Tab 1 Tab PO Q4H PRN Walker/Adult/Folding (Device) 1 Mis Mis 1 Ea .ROUTE DIRECTED Reported Rivastigmine 1.5 Mg Cap 1.5 Mg PO BIDPC Sinemet (Carbidopa-Levodopa) 25-100 Mg Tab 2 Tab PO QID Amlodipine (Amlodipine Besylate) 10 Mg Tab 10 Mg PO DAILY Tamsulosin (Tamsulosin HCl) 0.4 Mg Cap 0.8 Mg PO AC DINNER Nuplazid (Pimavanserin) 17 Mg Tab 34 Mg PO DAILY Glycopyrrolate 1 Mg Tab 1 Mg PO BID Seroquel (Quetiapine Fumarate) 25 Mg Tab 25 Mg PO BID PRN Protonix (Pantoprazole Sodium) 40 Mg Tab 40 Mg PO DAILY Valsartan 160 Mg Tab 160 Mg PO DAILY Gnp Melatonin Maximum Str (Melatonin) 5 Mg Tab 10 Mg PO HS Review of Systems Except as stated in HPI: all other systems reviewed are Neg Physical Exam Narrative GENERAL: Well-developed elderly white male patient currently in moderate distress. Awake, alert. SKIN: Focused skin assessment warm/dry. HEAD: Atraumatic. Normocephalic. EYES: Pupils equal and round. No scleral icterus. No injection or drainage. ENT: No nasal bleeding or discharge. Mucous membranes pink and moist. NECK: Trachea midline. No JVD. CARDIOVASCULAR: Regular rate and rhythm. No murmur appreciated. RESPIRATORY: No accessory muscle use. Clear to auscultation. Breath sounds equal bilaterally. GASTROINTESTINAL: Abdomen soft, non-tender, nondistended. Hepatic and splenic margins not palpable. MUSCULOSKELETAL: No obvious deformities. No clubbing. No cyanosis. No edema. Pelvis: Stable, tender palpation of the right hip. Decreased range of motion secondary to pain. Neurovascularly intact. NEUROLOGICAL: Awake and alert. No obvious cranial nerve deficits. Motor grossly within normal limits. Normal speech. PSYCHIATRIC: Appropriate mood and affect; insight and judgment normal. Data Data Last Documented VS Vital Signs Date Time Temp Pulse Resp B/P Pulse Ox O2 Delivery O2 Flow Rate FiO2 02/02/17 18:40 16 99 Room Air 02/02/17 18:25 98.6 65 174/77 Orders Complete Blood Count With Diff (02/02/17 18:35) Comprehensive Metabolic Panel (02/02/17 18:35) Prothrombin Time / Inr (Pt) (02/02/17 18:35) Act Partial Throm Time (Ptt) (02/02/17 18:35) Hip, Uni(Ap&Lat) W Ap Pelvis (02/02/17 18:35) Iv Access Insert/Monitor (02/02/17 18:35) Oximetry (02/02/17 18:35) Ecg Monitoring (02/02/17 18:35) Ondansetron Inj (Zofran Inj) (02/02/17 18:45) Sodium Chloride 0.9% Flush (Ns Flush) (02/02/17 18:45) Hydromorphone Pf Inj (Dilaudid Pf Inj) (02/02/17 18:45) MDM Medical Decision Making Medical Screen Exam Complete: Yes Emergency Medical Condition: Yes Medical Record Reviewed: Yes Differential Diagnosis Fall, right hip injuryfractures versus contusions versus dislocations Narrative Course X-ray and workup ordered for the patient. Physician Communication Physician Communication Case is signed out to Dr. Gregory at 7 PM pending workup and x-ray. Disposition based on workup. Diagnosis Primary Impression: Injury of right hip Taiwo Hahn MD Feb 02, 2017 19:04
--- NOTE | 2017-02-02 19:17 | PD ---
Physical Exam Date Seen by Provider: Feb 02, 2017 Time Seen by Provider: 19:16 Narrative The patient is a 71-year-old male was initially I would've by the previous physician, please refer to the initial history, physical, diagnostic evaluation , and treatment modality plan. The patient was signed out at 7 PM laboratory evaluation and x-ray pending. Data Data Last Documented VS Vital Signs Date Time Temp Pulse Resp B/P Pulse Ox O2 Delivery O2 Flow Rate FiO2 02/02/17 19:30 66 20 143/78 96 Room Air 02/02/17 18:25 98.6 Orders Complete Blood Count With Diff (02/02/17 18:35) Comprehensive Metabolic Panel (02/02/17 18:35) Prothrombin Time / Inr (Pt) (02/02/17 18:35) Act Partial Throm Time (Ptt) (02/02/17 18:35) Hip, Uni(Ap&Lat) W Ap Pelvis (02/02/17 18:35) Iv Access Insert/Monitor (02/02/17 18:35) Oximetry (02/02/17 18:35) Ecg Monitoring (02/02/17 18:35) Ondansetron Inj (Zofran Inj) (02/02/17 18:45) Sodium Chloride 0.9% Flush (Ns Flush) (02/02/17 18:45) Hydromorphone Pf Inj (Dilaudid Pf Inj) (02/02/17 18:45) Chest, Single Ap (02/02/17 ) Type And Screen (02/02/17 19:39) Consult Orthopedic (02/02/17 ) Electrocardiogram (02/02/17 ) Morphine Inj (Morphine Inj) (02/02/17 20:15) (Hub Use Only)Inp Phy Cons/Ref (02/02/17 20:14) Admit To Inpatient (02/02/17 ) Vital Signs (Adult) Q4H (02/02/17 20:31) Activity Bed Rest (02/02/17 20:31) Banking Pin Adjuster / Telemetry .CONTINUOUS (02/02/17 20:31) Diet Heart Healthy (02/03/17 Breakfast) Sodium Chloride 0.9% Flush (Ns Flush) (02/02/17 20:45) Sodium Chloride 0.9% Flush (Ns Flush) (02/02/17 21:00) Basic Metabolic Panel (Bmp) (02/03/17 06:00) Complete Blood Count With Diff (02/03/17 06:00) Case Management Consult (02/02/17 20:31) Naloxone Inj (Narcan Inj) (02/02/17 20:45) Inpatient Certification (02/02/17 ) Admit Order (Ed Use Only) (02/02/17 20:31) Labs Laboratory Tests Test 02/02/17 18:40 White Blood Count 8.9 TH/MM3 Red Blood Count 4.45 MIL/MM3 Hemoglobin 13.7 GM/DL Hematocrit 40.4 % Mean Corpuscular Volume 90.8 FL Mean Corpuscular Hemoglobin 30.8 PG Mean Corpuscular Hemoglobin 33.9 % Concent Red Cell Distribution Width 15.1 % Platelet Count 259 TH/MM3 Mean Platelet Volume 9.3 FL Neutrophils (%) (Auto) 80.7 % Lymphocytes (%) (Auto) 10.5 % Monocytes (%) (Auto) 7.1 % Eosinophils (%) (Auto) 1.1 % Basophils (%) (Auto) 0.6 % Neutrophils # (Auto) 7.1 TH/MM3 Lymphocytes # (Auto) 0.9 TH/MM3 Monocytes # (Auto) 0.6 TH/MM3 Eosinophils # (Auto) 0.1 TH/MM3 Basophils # (Auto) 0.1 TH/MM3 CBC Comment DIFF FINAL Differential Comment Prothrombin Time 10.6 SEC Prothromb Time International 1.0 RATIO Ratio Activated Partial 25.4 SEC Thromboplast Time Sodium Level 137 MEQ/L Potassium Level 4.9 MEQ/L Chloride Level 105 MEQ/L Carbon Dioxide Level 27.4 MEQ/L Anion Gap 5 MEQ/L Blood Urea Nitrogen 22 MG/DL Creatinine 1.00 MG/DL Estimat Glomerular Filtration 73 ML/MIN Rate Random Glucose 111 MG/DL Calcium Level 8.7 MG/DL Total Bilirubin 0.4 MG/DL Aspartate Amino Transf 21 U/L (AST/SGOT) Alanine Aminotransferase 13 U/L (ALT/SGPT) Alkaline Phosphatase 129 U/L Total Protein 7.3 GM/DL Albumin 3.8 GM/DL [facility] Medical Record Reviewed: Yes Supervised Visit with DORA: No Interpretation(s) EKG reveals normal sinus rhythm with a rate of 66. Right bundle-branch block. Last Impressions Hip and Pelvis X-Ray 02/02/17 1835 Signed Impressions: Service Date/Time: Thursday, February 02, 2017 19:11 - CONCLUSION: Minimally displaced intertrochanteric fracture of right proximal femur. Go Castelan MD Chest X-Ray 02/02/17 0000 Signed Impressions: Service Date/Time: Thursday, February 02, 2017 19:32 - CONCLUSION: No acute disease. Go Castelan MD Laboratory Tests Test 02/02/17 18:40 White Blood Count 8.9 TH/MM3 Red Blood Count 4.45 MIL/MM3 Hemoglobin 13.7 GM/DL Hematocrit 40.4 % Mean Corpuscular Volume 90.8 FL Mean Corpuscular Hemoglobin 30.8 PG Mean Corpuscular Hemoglobin 33.9 % Concent Red Cell Distribution Width 15.1 % Platelet Count 259 TH/MM3 Mean Platelet Volume 9.3 FL Neutrophils (%) (Auto) 80.7 % Lymphocytes (%) (Auto) 10.5 % Monocytes (%) (Auto) 7.1 % Eosinophils (%) (Auto) 1.1 % Basophils (%) (Auto) 0.6 % Neutrophils # (Auto) 7.1 TH/MM3 Lymphocytes # (Auto) 0.9 TH/MM3 Monocytes # (Auto) 0.6 TH/MM3 Eosinophils # (Auto) 0.1 TH/MM3 Basophils # (Auto) 0.1 TH/MM3 CBC Comment DIFF FINAL Differential Comment Prothrombin Time 10.6 SEC Prothromb Time International 1.0 RATIO Ratio Activated Partial 25.4 SEC Thromboplast Time Sodium Level 137 MEQ/L Potassium Level 4.9 MEQ/L Chloride Level 105 MEQ/L Carbon Dioxide Level 27.4 MEQ/L Anion Gap 5 MEQ/L Blood Urea Nitrogen 22 MG/DL Creatinine 1.00 MG/DL Estimat Glomerular Filtration 73 ML/MIN Rate Random Glucose 111 MG/DL Calcium Level 8.7 MG/DL Total Bilirubin 0.4 MG/DL Aspartate Amino Transf 21 U/L (AST/SGOT) Alanine Aminotransferase 13 U/L (ALT/SGPT) Alkaline Phosphatase 129 U/L Total Protein 7.3 GM/DL Albumin 3.8 GM/DL Differential Diagnosis Differential diagnosis includes hip fracture, hip dislocation, femur fracture, pelvic fracture, mechanical fall, contusion, sprain, strain. Narrative Course The patient was initially evaluated by the previous physician. Please refer to the initial history, physical, diagnostic evaluation, and treatment modality plan. The patient was signed out at 7 PM with x-ray and labs pending. X-ray the right hip reveals a right intertrochanteric fracture. I reviewed the patient's EMR, he underwent left hip surgery by Dr. George several months ago. The patient then developed blood clots in his lungs one month after surgery and is currently on Eliquis. The daughter also states that the patient has a history of dementia and will require a sitter during his hospitalization. Chest x-ray was unremarkable. Labs are unremarkable. The on-call medical service was paged for admission. Physician Communication Physician Communication The on-call medical service was paged for admission. I discussed the patient Dr. Winter who agrees with admission. Diagnosis Primary Impression: Intertrochanteric fracture of right hip Qualified Code: S72.144A - Closed nondisplaced intertrochanteric fracture of right femur, initial encounter Admitting Information Admitting Physician Requests: Admit Condition: Stable Ankush Gregory MD Feb 02, 2017 19:17
--- NOTE | 2017-02-02 19:26 | RADRPT ---
EXAM DATE/TIME: 02/02/2017 19:11 [facility] COMPARISON: No previous studies available for comparison. INDICATIONS : Right hip pain after fall. MEDICAL HISTORY : None. SURGICAL HISTORY : ORIF left hip. ENCOUNTER: Initial ACUITY: 1 day PAIN SCORE: 10/10 LOCATION: Right hip. FINDINGS: Examination of the right hip was performed with AP Pelvis. Minimally displaced intertrochanteric frac ture. Mild degenerative changes right hip. 3 screws through the left hip. No hardware loosening. The acetabulum is grossly intact. CONCLUSION: Minimally displaced intertrochanteric fracture of right proximal femur. Go Castelan MD on February 02, 2017 at 19:24 Board Certified Radiologist. This report was verified electronically.
[2017-02-02] MEDS ORDERED: APIX5TAB PO (19:29)
[2017-02-02 19:30] VITALS: BP 143/78; PULSE 66; RESP 20; O2SAT 96
[2017-02-02 19:37] LABS: AUTOMATED NEUTROPHIL # 7.1 TH/MM3 (1.8-7.7); BASOPHIL # 0.1 TH/MM3 (0-0.2); BASOPHIL % 0.6 % (0.0-2.0); EOSINOPHIL # 0.1 TH/MM3 (0-0.4); EOSINOPHIL % 1.1 % (0.0-4.0); HEMATOCRIT 40.4 % (39.0-51.0); HEMO FLAGS DIFF FINAL; LYMPH % 10.5 % (9.0-44.0); LYMPHOCYTE # 0.9 TH/MM3 (1.0-4.8); MEAN CELL VOLUME 90.8 FL (80.0-100.0); MEAN CORPUSCULAR HEMOGLOBIN 30.8 PG (27.0-34.0); MEAN CORPUSCULAR HGB CONC 33.9 % (32.0-36.0); MONO % 7.1 % (0.0-8.0); NEUT % 80.7 % (16.0-70.0); PLATELET COUNT 259 TH/MM3 (150-450); RED BLOOD COUNT 4.45 MIL/MM3 (4.50-5.90); RED CELL DISTRIBUTION WIDTH 15.1 % (11.6-17.2); WHITE BLOOD COUNT 8.9 TH/MM3 (4.0-11.0)
[2017-02-02 19:45] LABS: ALT (GPT) 13 U/L (12-78)
[2017-02-02 19:46] LABS: APTT (PATIENT) 25.4 SEC (24.3-30.1); PROTHROMBIN TIME - PATIENT 10.6 SEC (9.8-11.6)
[2017-02-02 19:48] LABS: ALKALINE PHOSPHATASE 129 U/L (45-117); TOTAL BILIRUBIN ADULT 0.4 MG/DL (0.2-1.0)
[2017-02-02 19:52] LABS: ANION GAP 5 MEQ/L (5-15); AST (GOT) 21 U/L (15-37); BICARBONATE 27.4 MEQ/L (21.0-32.0); BLOOD UREA NITROGEN 22 MG/DL (7-18); CHLORIDE 105 MEQ/L (98-107); GLOMERULAR FILTRATION RATE 73 ML/MIN (>89); POTASSIUM 4.9 MEQ/L (3.5-5.1); SODIUM (NA) 137 MEQ/L (136-145)
--- NOTE | 2017-02-02 19:55 | RADRPT ---
EXAM DATE/TIME: 02/02/2017 19:32 [facility] COMPARISON: CHEST SINGLE AP, December 09, 2016, 17:05. INDICATIONS : Chest pain after fall. MEDICAL HISTORY : Hypertension. Congestive heart failure. Gastroesophageal reflux disease. SURGICAL HISTORY : Total knee replacement, right. Total knee replacement, left. Left hip pinning. ENCOUNTER: Initial ACUITY: 1 day PAIN SCORE: 5/10 LOCATION: Bilateral chest FINDINGS: A single view of the chest demonstrates the lungs to be symmetrically aerated without evidence of mas s, infiltrate or effusion. The cardiomediastinal contours are unremarkable. Osseous structures are intact. CONCLUSION: No acute disease. Go Castelan MD on February 02, 2017 at 19:53 Board Certified Radiologist. This report was verified electronically.
[2017-02-02] MEDS ORDERED: MORPHINE SULFATE 4 MG/ML INJ IV PUSH ONE (20:15)
[2017-02-02] MEDS ORDERED: HYDROmorphone HCL PF 1 MG/ML VIAL IV PUSH PRN (20:45)
[2017-02-02] MEDS ORDERED: SODIUM CHLORIDE 0.9% FLUSH 10 ML FLUSH IV FLUSH PRN (20:45)
[2017-02-02] MEDS ORDERED: NALOXONE HCL 0.4 MG/ML AMP IV PRN (20:45)
[2017-02-02] MEDS: SODIUM CHLORIDE 0.9% FLUSH 10 ML FLUSH IV FLUSH SCH (21:02)
[2017-02-02 21:05] VITALS: BP 164/74; PULSE 71; RESP 18; O2SAT 96
[2017-02-02] MEDS ORDERED: TRAM50TA PO (21:08)
[2017-02-02] MEDS ORDERED: DOCU50CA5 (21:09)
[2017-02-02] MEDS ORDERED: TRAZ50TA12 PO (21:10)
--- NOTE | 2017-02-02 23:02 | HHI.HP ---
[facility]Staff Admission Diagnosis right intertrochanteric fracture Diagnoses: (1) Intertrochanteric fracture of right hip Chief Complaint: Fall with right hip pain Travel History International Travel<30 Days: No Contact w/Intl Traveler <30 Da: No Traveled to Known Affected Are: No History of Present Illness Written by Kathy Green, acting as scribe for Dr. Winter on 02/02/17 at 22:59. The patient is seen in his hospital room. He is complaining of pain in the right and left hip following a fall today. stated left hip pain started prior to the fall- by both family members and patient himself He denies chest pain, dizziness, shortness of breath, unilateral weakness, nausea, diaphoresis, or abdominal pain. According to his at the bedside, he was using a walker to ambulate and fell and hit his head on the wall and landed on his right hip. He was placed on full weight bearing on Thursday after recovering from his left hip replacement sx which was in December. Denies fever, n/v/diarrhea, dysuria, hematuria, black or red stool, chest pain, shortness of breath or dizziness. Review of Systems Except as stated in HPI: all other systems reviewed are Neg Past Family Social History Past Medical History Hypertension CHF Parkinson's Disease Alzheimer's Pulmonary Embolism December 2016 Recent UTI Pleural effusion GERD with esophagitis Benign neoplasm of the prostate Per patient's daughter daughter: atrial fibrillation Denies diabetes mellitus, COPD/emphysema, liver problems, kidney problems, DVT, CVA, seizures, thyroid problems, or cancers . Past Surgical History Left hip arthroplasty Tonsillectomy Right and left knee surgeries . Reported Medications Reported Meds & Active Scripts Active Calcium 600+D 200 (Calcium Carbonate-Vitamin D) 600-200 Mg-Unit Tab 1 Tab PO BID 30 Days Vitamin D3 (Cholecalciferol) 2,000 Unit Cap 2,000 Units PO DAILY Ergocalciferol 50,000 Unit Cap 50,000 Units PO Q7D Hydrocodone-Acetaminophen 7.5-325 mg Tab 1 Tab PO Q4H PRN Walker/Adult/Folding (Device) 1 Mis Mis 1 Ea .ROUTE DIRECTED Reported Trazodone (Trazodone HCl) 50 Mg Tab 50 Mg PO HS Stool Softener (Docusate Sodium) 50 Mg Capsule Tramadol (Tramadol HCl) 50 Mg Tab 50 Mg PO Q6H PRN Eliquis (Apixaban) 5 Mg Tab 5 Mg PO BID Rivastigmine 1.5 Mg Cap 1.5 Mg PO BIDPC Sinemet (Carbidopa-Levodopa) 25-100 Mg Tab 2 Tab PO QID Amlodipine (Amlodipine Besylate) 10 Mg Tab 10 Mg PO DAILY Tamsulosin (Tamsulosin HCl) 0.4 Mg Cap 0.8 Mg PO AC DINNER Nuplazid (Pimavanserin) 17 Mg Tab 34 Mg PO DAILY Glycopyrrolate 1 Mg Tab 1 Mg PO BID Seroquel (Quetiapine Fumarate) 25 Mg Tab 25 Mg PO BID PRN Protonix (Pantoprazole Sodium) 40 Mg Tab 40 Mg PO DAILY Valsartan 160 Mg Tab 160 Mg PO DAILY Gnp Melatonin Maximum Str (Melatonin) 5 Mg Tab 10 Mg PO HS . Allergies: Coded Allergies: Haldol (Verified Allergy, Severe, COMBATIVE, 02/02/17) Oxybutynin (Verified Allergy, Unknown, 02/02/17) Uncoded Allergies: steroids (Adverse Reaction, Severe, Confusion, 12/09/16) patient had episode in the past where he became extremely confused and combative after receiving steroids and his said that it is only to be given as a last resort. Active Ordered Medications Current Medications Ondansetron HCl (Zofran Inj) 4 mg ONCE ONCE IVP Last administered on 18:43; Start 02/02/17 at 18:45; Stop 02/02/17 at 18:46; Status DC Sodium Chloride (NS Flush) 2 ml UNSCH PRN IVF FLUSH AFTER USING IV ACCESS; Start 02/02/17 at 18:45; Stop 02/02/17 at 20:50; Status DC Hydromorphone HCl (Dilaudid Pf Inj) 1 mg ONCE ONCE IVS Last administered on 18:44; Start 02/02/17 at 18:45; Stop 02/02/17 at 18:46; Status DC Morphine Sulfate (Morphine Inj) 4 mg ONCE ONCE IV PUSH Last administered on 20:37; Start 02/02/17 at 20:15; Stop 02/02/17 at 20:16; Status DC Sodium Chloride (NS Flush) 2 ml UNSCH PRN IV FLUSH FLUSH AFTER USING IV ACCESS ; Start 02/02/17 at 20:45 Sodium Chloride (NS Flush) 2 ml BID IV FLUSH Last administered on 02/02/17 21: 02; Start 02/02/17 at 21:00 Naloxone HCl (Narcan Inj) 0.4 mg UNSCH PRN IV SEE LABEL COMMENTS; Start at 20:45 Hydromorphone HCl (Dilaudid Pf Inj) 0.2 mg Q3H PRN IV PUSH PAIN >5; Start 02/02 at 20:45 . Family History Mother with diabetes . Social History Smoked: previously Alcohol: denies Illicit Drugs: denies . Physical Exam Vital Signs Vital Signs Date Time Temp Pulse Resp B/P Pulse Ox O2 Delivery O2 Flow Rate FiO2 02/02/17 21:05 71 18 164/74 96 Room Air 02/02/17 19:30 66 20 143/78 96 Room Air 02/02/17 18:40 16 99 Room Air 02/02/17 18:25 98.6 65 16 174/77 99 Physical Exam GENERAL: This is a pale elderly male patient, in no apparent distress. SKIN: No rashes, ecchymoses or lesions on anterior skin surface. Cool and dry. HEAD: Atraumatic. Normocephalic. EYES: No scleral icterus. No injection or drainage. ENT: Nose without bleeding, purulent drainage. NECK: Trachea midline. No JVD. CARDIOVASCULAR: Regular rate and rhythm without murmurs, gallops, or rubs. RESPIRATORY: Clear to auscultation. Breath sounds equal bilaterally. No wheezes , rales, or rhonchi. GASTROINTESTINAL: Abdomen soft, non-tender, nondistended. No guarding. MUSCULOSKELETAL: Extremities without clubbing, cyanosis, or edema. No calf tenderness. Right and left hip pain. NEUROLOGICAL: Awake with some memory impairment noted. Normal speech. Pain on palpation at bilateral hip, with limited mobility due to pain from fracture. . Laboratory Laboratory Tests Test 02/02/17 02/02/17 18:40 19:50 White Blood Count 8.9 Red Blood Count 4.45 Hemoglobin 13.7 Hematocrit 40.4 Mean Corpuscular Volume 90.8 Mean Corpuscular Hemoglobin 30.8 Mean Corpuscular Hemoglobin 33.9 Concent Red Cell Distribution Width 15.1 Platelet Count 259 Mean Platelet Volume 9.3 Neutrophils (%) (Auto) 80.7 Lymphocytes (%) (Auto) 10.5 Monocytes (%) (Auto) 7.1 Eosinophils (%) (Auto) 1.1 Basophils (%) (Auto) 0.6 Neutrophils # (Auto) 7.1 Lymphocytes # (Auto) 0.9 Monocytes # (Auto) 0.6 Eosinophils # (Auto) 0.1 Basophils # (Auto) 0.1 CBC Comment DIFF FINAL Differential Comment Prothrombin Time 10.6 Prothromb Time International 1.0 Ratio Activated Partial 25.4 Thromboplast Time Sodium Level 137 Potassium Level 4.9 Chloride Level 105 Carbon Dioxide Level 27.4 Anion Gap 5 Blood Urea Nitrogen 22 Creatinine 1.00 Estimat Glomerular Filtration 73 Rate Random Glucose 111 Calcium Level 8.7 Total Bilirubin 0.4 Aspartate Amino Transf 21 (AST/SGOT) Alanine Aminotransferase 13 (ALT/SGPT) Alkaline Phosphatase 129 Total Protein 7.3 Albumin 3.8 Blood Type A POSITIVE Antibody Screen NEGATIVE Result Diagram: 02/02/17 1840 02/02/17 1840 Imaging Last Impressions Hip and Pelvis X-Ray 02/02/17 1835 Signed Impressions: Service Date/Time: Thursday, February 02, 2017 19:11 - CONCLUSION: Minimally displaced intertrochanteric fracture of right proximal femur. Go Castelan MD Chest X-Ray 02/02/17 0000 Signed Impressions: Service Date/Time: Thursday, February 02, 2017 19:32 - CONCLUSION: No acute disease. Go Castelan MD . Assessment and Plan Problem List: (1) Intertrochanteric fracture of right hip ICD Code: S72.141A Status: Acute Assessment and Plan Mr. Monzon is a 71 y/o male with Parkinson's disease and recent left hip fracture who came to the ER following a fall at home and is now found with right hip fracture. Right hip intertrochanteric fracture s/p fall at home - consult orthopedic surgery - assistance appreciated - NPO after midnight Fall with head impact - no focal neuro deficits noted - check CT head without IV contrast to r/o intracranial pathology resulting from fall - follow results Dementia with behavioral disturbance - bedside sitter ordered - family requesting that patient not be restrained Parkinson's Disease - continue home medications Hypertension, with blood pressure elevation possibly secondary to pain due to fracture - continue home medications - Dilaudid 0.2 mg IV q3h PRN pain - monitor trends in blood pressure readings and adjust therapy as indicated DVT prophylaxis - Patient takes Eliquis; will hold; if patient doesn't go to OR in a.m., will need heparin drip This note was transcribed by kathy [Kathy Green]. I, Dr. Drew Winter personally performed the history, physical exam, and medical decision making; and confirmed the accuracy of the information in the transcribed note. Authenticated by Dr. Drew Winter on 02/02/17 at 22:59. Discussed Condition With ER physician, RN, patient's daughter, patient . Physician Certification 2 Midnight Certification Type: Admission for Inpatient Services Order for Inpatient Services The services are ordered in accordance with Medicare regulations or non- Medicare payer requirements, as applicable. In the case of services not specified as inpatient-only, they are appropriately provided as inpatient services in accordance with the 2-midnight benchmark. Estimated LOS (days): 3 days is the estimated time the patient will need to remain in the hospital, assuming treatment plan goals are met and no additional complications. Post-Hospital Plan: Home Problem Qualifiers (1) Intertrochanteric fracture of right hip: Qualified Code: S72.144A - Closed nondisplaced intertrochanteric fracture of right femur, initial encounter Kathy Green Feb 02, 2017 23:02 Drew Winter MD Feb 03, 2017 08:25
--- NOTE | 2017-02-03 00:34 | RADRPT ---
EXAM DATE/TIME: 02/03/2017 00:23 [facility] COMPARISON: No previous studies available for comparison. INDICATIONS : Trauma, fall. RADIATION DOSE: 40.92 CTDIvol (mGy) MEDICAL HISTORY : Gastroesophageal reflux disease. Hypertension. Parkinsons.Dementia. Congestive heart failure. SURGICAL HISTORY : None. ENCOUNTER: Initial ACUITY: 1 day PAIN SCALE: 0/10 LOCATION: cranial TECHNIQUE: Multiple contiguous axial images were obtained of the head. Using automated exposure control and adj ustment of the mA and/or kV according to patient size, radiation dose was kept as low as reasonably a chievable to obtain optimal diagnostic quality images. DICOM format image data is available electro nically for review and comparison. FINDINGS: CEREBRUM: There is mild cerebral atrophy. Ventricles are normal in size. No midline shift, mass lesion, hemorr yenny or acute infarction. No extra-axial fluid collections are seen. POSTERIOR FOSSA: The cerebellum and brainstem demonstrate no abnormality. The 4th ventricle is midline. The cerebell opontine angle is unremarkable. EXTRACRANIAL: Visualized sinuses are clear. SKULL: The calvaria is intact. No evidence of skull fracture. CONCLUSION: No acute intracranial abnormality is identified. Markos Henao MD on February 03, 2017 at 0:30 Board Certified Radiologist. This report was verified electronically.
[2017-02-03 02:23] VITALS: BP 158/69; PULSE 67; RESP 20; TEMP 97.3; O2SAT 97
[2017-02-03 05:59] VITALS: BP 145/65; PULSE 68; RESP 20; TEMP 96.4; O2SAT 94
--- NOTE | 2017-02-03 06:48 | PD.ORT.PN ---
Subjective Subjective Remarks Patient previously noted Dr. Rudolph with percutaneous pinning of left hip. Patient has Parkinson's and Alzheimer's and had a mechanical fall. Right hip pain. X-rays diagnosis a right intertrochanteric femur fracture. No other associated injuries Objective Vitals Vital Signs Date Time Temp Pulse Resp B/P Pulse Ox O2 Delivery O2 Flow Rate FiO2 02/03/17 05:59 96.4 68 20 145/65 94 02/03/17 02:23 97.3 67 20 158/69 97 02/02/17 21:05 71 18 164/74 96 Room Air 02/02/17 19:30 66 20 143/78 96 Room Air 02/02/17 18:40 16 99 Room Air 02/02/17 18:25 98.6 65 16 174/77 99 I/O 02/02/17 02/02/17 02/02/17 02/03/17 02/03/17 02/03/17 07:00 15:00 23:00 07:00 15:00 23:00 Output Total 400 ml Balance -400 ml Output Urine Total 400 ml # Voids 1 Result Diagram: 02/02/17 1840 02/02/17 1840 Other Results Laboratory Tests Test 02/02/17 18:40 Prothrombin Time 10.6 SEC (9.8-11.6) Prothromb Time International 1.0 RATIO Ratio Imaging Last 24 hours Impressions Hip and Pelvis X-Ray 02/02/17 1835 Signed Impressions: Service Date/Time: Thursday, February 02, 2017 19:11 - CONCLUSION: Minimally displaced intertrochanteric fracture of right proximal femur. Go Castelan MD Objective Remarks Bilateral upper extremities: No pain with range of motion of shoulder elbow or wrist. Distally intact sensation Left lower extremity: Full range of motion with minimal pain Right lower extremity: Pain to palpation over hip. No tenderness over knee or ankle. Distally intact sensation strong dorsiflexion plantar flexion of foot Assessment & Plan Assessment and Plan Right intertrochanteric femur fracture Nothing by mouth Sign consents Due to fracture through intertrochanteric region of femur surgical intervention is necessary for intramedullary nail fixation. We will plan on doing that today with Ignacio Moore Jr. Feb 03, 2017 06:48
[2017-02-03] MEDS ORDERED: ONDANSETRON HCL 4 MG/2 ML VIAL IV PUSH PRN (08:45)
[2017-02-03] MEDS ORDERED: QUEtiapine FUMARATE 25 MG TAB PO PRN (08:45)
[2017-02-03] MEDS ORDERED: ACETAMINOPHEN 325 MG TAB PO PRN ×2 (08:45)
[2017-02-03 08:57] VITALS: BP 144/65; PULSE 62; RESP 18; TEMP 97.5; O2SAT 94
[2017-02-03] MEDS: SODIUM CHLORIDE 0.9% FLUSH 10 ML FLUSH IV FLUSH SCH ×2 (09:00→20:54)
[2017-02-03] MEDS ORDERED: CALCIUM POLYCARBOPHIL 625 MG TAB PO SCH (09:00)
[2017-02-03] MEDS: NUPLAZID 34 MG PO SCH (09:00)
[2017-02-03] MEDS ORDERED: POLYETHYLENE GLYCOL 17 GM PKG PO SCH (09:00)
[2017-02-03] MEDS ORDERED: CALCIUM POLYCARBOPHIL 625 MG TAB PO PRN (09:00)
[2017-02-03] MEDS ORDERED: POLYETHYLENE GLYCOL 17 GM PKG PO PRN (09:00)
[2017-02-03] MEDS ORDERED: CHOLECALCIFEROL (VIT D3) 1000 UNIT TAB PO SCH (09:00)
[2017-02-03] MEDS ORDERED: CALCIUM/VITAMIN D 250 MG/125 U TAB PO SCH (09:00)
--- NOTE | 2017-02-03 09:28 | MB ---
cc: JOSE LUIS RAO DATE OF ADMISSION 02/02/2017 DATE OF CONSULTATION 02/03/2017 REASON FOR CONSULTATION Right hip intertrochanteric fracture. HISTORY Rito is a 71-year-old male who has had a fall. He normally ambulates with a walker. He had a previous fall resulting in a left femoral neck fracture. He did hit his head but had no loss of consciousness. He denies dizziness, syncope or loss of consciousness. The pain in his right hip is worse with movement and is improved with rest. He denies any hip pain prior to his fall. PAST MEDICAL HISTORY ILLNESSES 1. Hypertension. 2. Parkinson disease. 3. Alzheimer's disease. 4. Reflux. 5. Atrial fibrillation. SURGERIES 1. Left hip pinning. 2. Tonsillectomy. 3. Bilateral knee surgery. MEDICATIONS 1. Calcium. 2. Vitamin D. 3. Hydrocodone. 4. Trazodone. 5. Eliquis. 6. Amlodipine. 7. Tamsulosin. 8. Seroquel. 9. Protonix. 10. Valsartan. ALLERGIES HALDOL. OXYBUTYNIN. FAMILY HISTORY Positive for diabetes in his mother. SOCIAL HISTORY The patient denies current alcohol, tobacco or drug use. REVIEW OF SYSTEMS The patient denies headache, visual changes, neck pain, chest pain, shortness of breath, abdominal pain, nausea, vomiting or recent weight loss. He complains of right hip pain. The pain is worse with movement. He denies any bowel or bladder incontinence. PHYSICAL EXAMINATION GENERAL: The patient is a 71-year male who is awake and alert. He is thin but appears well-developed, well-nourished. VITAL SIGNS: Temperature 96.4, pulse 68, respirations 20, blood pressure 145/65, O2 sat is 94% on room air. HEAD: The patient is normocephalic. Pupils are equal. NECK: Soft, nontender. Trachea is midline. ABDOMEN: Soft, nontender, nondistended. EXTREMITIES: Examination of bilateral upper extremities reveals no significant pain with shoulder, elbow or wrist motion. He has intact sensation in all fingers. He has palpable radial pulses. Skin is intact. Examination of the left leg reveals no pain with hip, knee or ankle motion. Skin is intact. Dorsalis pedis pulses palpable. Sensation is intact in the left foot. Examination of the right leg reveals pain with any hip motion. His right leg is shortened and externally rotated. He has no tenderness around his knee, tibia or ankle. Skin is intact. Dorsalis pedis pulses palpable. Sensation is intact. X-RAYS X-rays of the right hip were reviewed. The x-rays reveal a displaced right hip intertrochanteric fracture. IMPRESSION 1. Parkinson's disease. 2. Osteoporosis. 3. Displaced right hip intertrochanteric fracture. 4. CHF. PLAN The treatment options were discussed with the patient. At this point I would recommend right hip reduction, intramedullary nail fixation. The risks of surgery include bleeding, infection, injury to arteries, nerves and blood vessels, nonunion, malunion, painful hardware as well as medical complications including blood clot, stroke, heart attack and . All questions were answered. I will plan on surgery today. A mid-level provider in my office, nurse practitioner or PA, may see this patient on a follow-up basis and continue to implement the objective of this plan including: Starting or adjusting medications, injections of muscle, tendon, bursa or joints, cast application, orthotic or brace application, physical therapy, further radiographic studies including x-ray, MRI, CT, ultrasounds or bone scan, vascular studies, neurologic studies, or other specialist consultations, and proceeding with surgical management as appropriate. MD RASHI Kelley/[facility] /7:10 AM /9:25 AM
[2017-02-03] MEDS: VALSARTAN 160 MG TAB PO SCH (09:44)
[2017-02-03] MEDS: DOCUSATE SODIUM 100 MG CAP PO SCH ×3 (09:44→20:53)
[2017-02-03] MEDS: RIVASTIGMINE TARTRATE 1.5 MG CAP PO SCH ×2 (09:44→20:53)
[2017-02-03] MEDS: GLYCOPYRROLATE 1 MG TAB PO SCH ×2 (09:45→20:54)
[2017-02-03] MEDS: PANTOPRAZOLE SOD 40 MG DELAYED RELEASE TAB PO SCH (09:46)
--- NOTE | 2017-02-03 10:29 | HHI.PR ---
Subjective Remarks Follow-up hip fracture. Complains of tolerable pain. He is baseline confused. Discussed with RN Objective Vitals Vital Signs Date Time Temp Pulse Resp B/P Pulse Ox O2 Delivery O2 Flow Rate FiO2 02/03/17 08:57 97.5 62 18 144/65 94 02/03/17 05:59 96.4 68 20 145/65 94 02/03/17 02:23 97.3 67 20 158/69 97 02/02/17 21:05 71 18 164/74 96 Room Air 02/02/17 19:30 66 20 143/78 96 Room Air 02/02/17 18:40 16 99 Room Air 02/02/17 18:25 98.6 65 16 174/77 99 I/O 02/02/17 02/02/17 02/02/17 02/03/17 02/03/17 02/03/17 07:00 15:00 23:00 07:00 15:00 23:00 Output Total 400 ml Balance -400 ml Output Urine Total 400 ml # Voids 1 Result Diagram: 02/02/17 1840 02/02/17 1840 Imaging Last Impressions Hip and Pelvis X-Ray 02/02/17 1835 Signed Impressions: Service Date/Time: Thursday, February 02, 2017 19:11 - CONCLUSION: Minimally displaced intertrochanteric fracture of right proximal femur. Go Castelan MD Head CT 02/02/17 0000 Signed Impressions: Service Date/Time: Friday, February 03, 2017 00:23 - CONCLUSION: No acute intracranial abnormality is identified. Markos Henao MD Chest X-Ray 02/02/17 0000 Signed Impressions: Service Date/Time: Thursday, February 02, 2017 19:32 - CONCLUSION: No acute disease. Go Castelan MD Objective Remarks Well-developed, well-nourished in distress Equal breath sounds clear S1 and S2 no gallop Abdomen soft nontender extremities tender bilateral hips Alert moving all 4 extremities A/P Problem List: (1) Intertrochanteric fracture of right hip ICD Code: S72.141A Status: Acute Assessment and Plan Mr. Monzon is a 71 y/o male with Parkinson's disease and recent left hip fracture who came to the ER following a fall at home and found with right hip fracture. Right hip intertrochanteric fracture s/p fall at home - consult orthopedic surgery - assistance appreciated - NPO for surgery today Fall with head impact - no focal neuro deficits noted - CT head without acute finding - Fall precautions Dementia with behavioral disturbance - bedside sitter ordered - family requesting that patient not be restrained Parkinson's Disease - continue home medications Sinemet Hypertension, with blood pressure elevation possibly secondary to pain due to fracture - continue home medications Flomax, Norvasc, valsartan - Dilaudid 0.2 mg IV q3h PRN pain - monitor trends in blood pressure readings and adjust therapy as indicated Chronic medical conditions of CHF, Pleural effusion, GERD with esophagitis and Prostate problem. Continue outpatient medications as appropriate DVT prophylaxis - Patient takes Eliquis; will hold for surgery. History of PE and A. fib. EKG with sinus rhythm LAFB and RBBB no significant change from previous on my interpretation Problem Qualifiers (1) Intertrochanteric fracture of right hip: Qualified Code: S72.144A - Closed nondisplaced intertrochanteric fracture of right femur, initial encounter Gurpreet Ann MD Feb 03, 2017 10:29
[2017-02-03 10:40] LABS: AUTOMATED NEUTROPHIL # 9.5 TH/MM3 (1.8-7.7); BASOPHIL # 0.1 TH/MM3 (0-0.2); BASOPHIL % 0.5 % (0.0-2.0); EOSINOPHIL # 0.1 TH/MM3 (0-0.4); EOSINOPHIL % 1.1 % (0.0-4.0); HEMATOCRIT 38.3 % (39.0-51.0); HEMO FLAGS DIFF FINAL; LYMPH % 7.6 % (9.0-44.0); LYMPHOCYTE # 0.9 TH/MM3 (1.0-4.8); MEAN CELL VOLUME 89.6 FL (80.0-100.0); MEAN CORPUSCULAR HEMOGLOBIN 30.9 PG (27.0-34.0); MEAN CORPUSCULAR HGB CONC 34.5 % (32.0-36.0); MONO % 7.9 % (0.0-8.0); NEUT % 82.9 % (16.0-70.0); PLATELET COUNT 237 TH/MM3 (150-450); RED BLOOD COUNT 4.27 MIL/MM3 (4.50-5.90); RED CELL DISTRIBUTION WIDTH 14.6 % (11.6-17.2); WHITE BLOOD COUNT 11.4 TH/MM3 (4.0-11.0)
[2017-02-03 10:56] LABS: BICARBONATE 25.9 MEQ/L (21.0-32.0); POTASSIUM 3.9 MEQ/L (3.5-5.1)
[2017-02-03] MEDS ORDERED: PROPOFOL 200 MG/20 ML AMP IV ONE (12:00)
[2017-02-03] MEDS ORDERED: ePHEDrine/NS 25 MG/5 ML SYR IV ONE (12:00)
[2017-02-03] MEDS ORDERED: ONDANSETRON HCL 4 MG/2 ML VIAL IV PUSH ONE (12:00)
--- NOTE | 2017-02-03 12:11 | EKG ---
Date Performed: 02/02/2017 Time Performed: 20:28:34 PTAGE: 71 years EKG: Sinus rhythm RIGHT BUNDLE BRANCH BLOCK LEFT ANTERIOR FASCICULAR BLOCK VOLTAGE CRITERIA FOR LVH ABNORMAL ECG PREVIOUS TRACING : 12/09/2016 17.35 Compared to prior tracing no significant change DOCTOR: Carlos Davies Interpretating Date/Time 02/03/2017 12:08:34
[2017-02-03 12:37] VITALS: BP 135/69; PULSE 66; RESP 17; TEMP 97.6; O2SAT 96
[2017-02-03] MEDS ORDERED: DOCU1CAP39 PO (13:56)
--- NOTE | 2017-02-03 13:56 | HHI.DCPOC ---
Discharge Care Plan Diagnosis: (1) Intertrochanteric fracture of right hip Your Health Problems Are: Difficulty with ADL Exercise Tolerance Goals to Promote Your Health * To prevent worsening of your condition and complications * To maintain your health at the optimal level Directions to Meet Your Goals Take your medications as prescribed Follow your dietary instruction Follow activity as directed Keep your appointments as scheduled Take your immunizations and boosters as scheduled If your symptoms worsen call your PCP, if no PCP go to Urgent Care Center or Emergency Room Smoking is Dangerous to Your Health. Avoid second hand smoke Call the 24-hour hour crisis hotline for domestic abuse at Gurpreet Ann MD Feb 03, 2017 13:56
[2017-02-03] MEDS ORDERED: ACETAMINOPHEN 1000 MG/100 ML VIAL IV ONE (13:57)
[2017-02-03] MEDS ORDERED: KETAMINE HCL 500 MG/5 ML VIAL ONE (13:57)
[2017-02-03] MEDS ORDERED: ceFAZolin INJ 1,000 MG VIAL ONE (14:22)
[2017-02-03] MEDS ORDERED: VANCOMYCIN HCL 1000 MG VIAL ONE (14:22)
[2017-02-03] MEDS ORDERED: GENTAMICIN SULFATE 80 MG/2 ML VIAL ONE (14:22)
--- NOTE | 2017-02-03 14:24 | PD.OP ---
cc: Morris Rudolph MD Operative Report Date of Surgery: Feb 03, 2017 Preoperative Diagnosis: Right hip intertrochanteric fracture Postoperative Diagnosis: Procedure: Right hip reduction and intramedullary nail fixation Surgeon: Morris Rudolph Principal Technical Architect(s): Mau Uribe PA-C The surgical procedure was assisted by my physician salon shampoo assistant. My P.A. presence was necessary throughout this case for the manipulation and positioning of the surgical extremity. My P.A. was assisting me throughout the duration of this procedure. The skill set of a physician salon shampoo assistant was medically necessary to complete this procedure. During the surgical case the surgical supply assistant was working at the back table and the physician salon shampoo assistant was directly assisting me. Operation and Findings: Implants used: [11]mm 130 deg Synthes TFNA short troch nail Plan of activity: Weight-bear as tolerated Patient was seen and evaluated preoperatively. The patient has significant hip pain from intertrochanteric hip fracture. The risk and benefits of surgery were discussed in depth with the patient to include bleeding infection nonunion malunion and need for hip replacement painful hardware as well as medical competitions including but not stroke heart attack and . Informed consent was obtained. Operative site was marked. Patient was brought to the operating room and placed on fracture table. IV sedation was administered by anesthesiologist. Timeout procedure was performed. Hip and leg were prepped with alcohol followed by DuraPrep and draped in the usual sterile fashion. IV antibiotics were given prior to incision. Procedure began with reduction of fracture. Traction was applied. The leg was manipulated to achieve reduction. Excellent reduction was achieved. Fluoroscopy was used to confirm reduction. A three inch incision was made proximal to the trochanter. Subcutaneous tissue was dissected bluntly. Guidepin was placed at the tip of the trochanter and advanced into the femoral canal. Fluoroscopy confirmed appropriate guidepin placement. A opening reamer was placed over the guidepin. The Synthes TFNA nail was attached to the insertion handle. Nail was now placed through the tip of the trochanter into the femoral canal. Fluoroscopy confirmed appropriate nail placement. A second incision was made over the lateral thigh. Cannulas were placed through the insertion handle down to the femur. Guidepin was now placed through the femoral nail into the center of the femoral head. Fluoroscopy confirmed appropriate guidepin placement. Screw length was measured. Cannulated drill was placed over the guidepin. Appropriate length lag screw was now placed. Traction was released and compression was applied. The set screw was now tightened in dynamic mode. Using the insertion handle as a guide a distal interlocking screw was drilled and placed. Final fluoroscopy revealed well aligned fracture with well-placed hardware. Incision was closed with 3-0 Vicryl and chase. Sterile dressings were applied. Patient was awakened and transferred to recovery room. Morris Rudolph MD Feb 03, 2017 14:24
[2017-02-03] MEDS ORDERED: diphenhydrAMINE HCL 25 MG CAP PO PRN (14:30)
[2017-02-03] MEDS ORDERED: SODIUM CHLORIDE 0.9% FLUSH 5 ML FLUSH IVF PRN (14:30)
[2017-02-03] MEDS ORDERED: BUPIVACAINE/EPINEPHRINE 0.25% 50 ML VIAL ONE (15:08)
[2017-02-03] MEDS ORDERED: fentaNYL CITRATE 250 MCG/5 ML AMP ONE (15:39)
[2017-02-03] MEDS ORDERED: ERGOCALCIFEROL (VIT D2) 50,000 UNIT CAP PO ONE (16:00)
[2017-02-03] MEDS: TAMSULOSIN HCL 0.4 MG CAP PO SCH (16:00)
[2017-02-03] MEDS ORDERED: DO NOT ADM ANY ANTICOAGULANT DRUGS PRN ×2 (16:30)
--- NOTE | 2017-02-03 16:49 | RADRPT ---
EXAM DATE/TIME: 02/03/2017 15:07 [facility] COMPARISON: No previous studies available for comparison. INDICATIONS : ORIF of the right hip. MEDICAL HISTORY : Congestive heart failure. Gastroesophageal reflux disease. Hypertension. Parkinsons.Dementia SURGICAL HISTORY : ORIF left hip ENCOUNTER: Subsequent ACUITY: 2 days PAIN SCORE: Non-responsive. LOCATION: Right pelvis FINDINGS: 4 magnified C-arm spot views are centered over the hip and labeled right. These show a femoral neck s crew with short intramedullary robina. Femoral neck screw is contained within the cortical confines of t he femoral head. Good alignment is observed. CONCLUSION: Limited images as detailed above. Rito Nice Jr., MD on February 03, 2017 at 16:46 Board Certified Radiologist. This report was verified electronically.
[2017-02-03 20:30] VITALS: BP 145/63; PULSE 67; RESP 17; TEMP 98.8; O2SAT 96
[2017-02-03] MEDS: traZODone HCL 50 MG TAB PO SCH (20:53)
[2017-02-03] MEDS: SODIUM CHLORIDE 0.9% FLUSH 5 ML FLUSH IVF SCH (20:54)
[2017-02-03] MEDS: CALCIUM/VITAMIN D 250 MG/125 U TAB PO SCH (20:54)
[2017-02-03] MEDS: ACETAMINOPHEN/HYDROcodone 325 MG/5 MG TAB PO PRN (20:57)
[2017-02-03 21:25] VITALS: PULSE 64
[2017-02-04] VITALS (8 sets, daily range): BP systolic 118–165; BP diastolic 58–74; PULSE 64–80; RESP 17–18; TEMP 97.6–99.3; O2SAT 93–97
[2017-02-04] MEDS: CARBIDOPA/LEVODOPA 25 MG/100 MG TAB PO SCH ×5 (00:34→22:01)
--- NOTE | 2017-02-04 06:49 | PD.ORT.PN ---
Subjective Subjective Remarks POD 1 s/p IMN right hip patient has been slightly confused. has sitter at bedside. reports mild pain in hip. Objective Vitals Vital Signs Date Time Temp Pulse Resp B/P Pulse Ox O2 Delivery O2 Flow Rate FiO2 02/04/17 04:35 98.3 65 17 156/73 96 02/04/17 00:50 97.8 64 17 142/69 95 02/03/17 21:25 64 02/03/17 20:30 98.8 67 17 145/63 96 02/03/17 19:05 Room Air 02/03/17 18:15 98.1 66 12 137/65 95 Room Air 02/03/17 17:15 63 12 139/65 96 Room Air 02/03/17 16:15 64 12 158/66 97 Room Air 02/03/17 16:00 66 12 164/73 97 Room Air 02/03/17 15:45 67 12 147/67 99 Nasal Cannula 3 02/03/17 15:30 98.1 65 12 138/63 100 Nasal Cannula 3 02/03/17 12:37 97.6 66 17 135/69 96 02/03/17 08:57 97.5 62 18 144/65 94 I/O 02/03/17 02/03/17 02/03/17 02/04/17 02/04/17 02/04/17 07:00 15:00 23:00 07:00 15:00 23:00 Intake Total 570 ml Output Total 400 ml 20 ml Balance -400 ml 550 ml Intake Oral 120 ml Other 450 ml Output Urine Total 400 ml Estimated Blood Loss 20 ml # Voids 1 1 # Bowel Movements 0 Result Diagram: 02/03/17 0933 02/03/17 0933 Imaging Last 24 hours Impressions Hip and Pelvis X-Ray 02/02/17 8837 Signed Impressions: Service Date/Time: Thursday, February 02, 2017 19:11 - CONCLUSION: Minimally displaced intertrochanteric fracture of right proximal femur. Go Castelan MD Objective Remarks RLE: dressings clean and dry. intact. NVI Assessment & Plan Assessment and Plan 1) Right intertrochanteric femur fracture s/p IMN - POD 1 -WBAT -daily dressing changes POD 2 -CM for SNF placement -DVT prophylaxis with lovenox. DC with Xarelto -f/u with [facility] or [facility] in 2 weeks Mohit Cruz Feb 04, 2017 06:48
[2017-02-04] MEDS ORDERED: XARE10TA PO (06:51)
[2017-02-04] MEDS ORDERED: NORC5TAB PO (06:51)
[2017-02-04] MEDS ORDERED: WALKER/ADULT/FO1 MIS (06:51)
[2017-02-04 06:55] LABS: HEMATOCRIT 36.6 % (39.0-51.0); REVIEW FLAG FINAL
[2017-02-04] MEDS: NUPLAZID 34 MG PO SCH ×2 (09:00→22:02)
[2017-02-04] MEDS: VALSARTAN 160 MG TAB PO SCH (10:55)
[2017-02-04] MEDS: CHOLECALCIFEROL (VIT D3) 5000 UNIT CAP PO SCH (10:55)
[2017-02-04] MEDS: RIVASTIGMINE TARTRATE 1.5 MG CAP PO SCH ×2 (10:55→18:31)
[2017-02-04] MEDS: PANTOPRAZOLE SOD 40 MG DELAYED RELEASE TAB PO SCH (10:55)
[2017-02-04] MEDS: DOCUSATE SODIUM 100 MG CAP PO SCH ×3 (10:56→18:31)
[2017-02-04] MEDS: CALCIUM/VITAMIN D 250 MG/125 U TAB PO SCH ×3 (10:56→18:31)
[2017-02-04] MEDS: SODIUM CHLORIDE 0.9% FLUSH 5 ML FLUSH IVF SCH ×2 (11:02→21:00)
[2017-02-04] MEDS: GLYCOPYRROLATE 1 MG TAB PO SCH ×2 (13:34→22:10)
[2017-02-04] MEDS: ACETAMINOPHEN/HYDROcodone 325 MG/5 MG TAB PO PRN ×2 (13:34→19:40)
[2017-02-04] MEDS ORDERED: ENOXAPARIN SODIUM 30 MG/0.3 ML SYRINGE SQ SCH (14:30)
[2017-02-04] MEDS: SODIUM CHLORIDE 0.9% FLUSH 10 ML FLUSH IV FLUSH SCH ×2 (14:31→21:00)
--- NOTE | 2017-02-04 16:12 | HHI.PR ---
Subjective Remarks Follow-up orthopedic injury. Patient denies any pain. He is awake but confused which is his baseline. Discussed with who states he was diagnosed with PE in December of this year. Discussed with orthopedic surgery who cleared patient to be restarted on Eliquis Objective Vitals Vital Signs Date Time Temp Pulse Resp B/P Pulse Ox O2 Delivery O2 Flow Rate FiO2 02/04/17 13:49 93 21 02/04/17 11:50 97.7 75 17 132/58 94 02/04/17 10:53 73 18 118/58 02/04/17 07:55 97.9 69 17 154/68 94 02/04/17 07:30 Room Air 02/04/17 04:35 98.3 65 17 156/73 96 02/04/17 00:50 97.8 64 17 142/69 95 02/03/17 21:25 64 02/03/17 20:30 98.8 67 17 145/63 96 02/03/17 19:05 Room Air 02/03/17 18:15 98.1 66 12 137/65 95 Room Air 02/03/17 17:15 63 12 139/65 96 Room Air 02/03/17 16:15 64 12 158/66 97 Room Air I/O 02/03/17 02/03/17 02/03/17 02/04/17 02/04/17 02/04/17 07:00 15:00 23:00 07:00 15:00 23:00 Intake Total 570 ml 60 ml 100 ml Output Total 400 ml 20 ml 400 ml Balance -400 ml 550 ml -340 ml 100 ml Intake Oral 120 ml 60 ml IV Total 100 ml Other 450 ml Output Urine Total 400 ml 400 ml Estimated Blood Loss 20 ml # Voids 1 1 # Bowel Movements 0 0 Result Diagram: 02/04/17 0533 02/03/17 0933 Objective Remarks Well-developed, well-nourished in distress Equal breath sounds clear S1 and S2 no gallop Abdomen soft nontender extremities tender bilateral hips Alert moving all 4 extremities Procedures Right hip reduction and intramedullary nail fixation A/P Problem List: (1) Intertrochanteric fracture of right hip ICD Code: S72.141A Status: Acute Assessment and Plan Mr. Monzon is a 71 y/o male with Parkinson's disease and recent left hip fracture who came to the ER following a fall at home and found with right hip fracture. Right hip intertrochanteric fracture s/p fall at home -Stable status post Right hip reduction and intramedullary nail fixation. Continue postoperative management with physical therapy, wound care, incentive spirometry, pain management with Lortab and IV Dilaudid. DVT prophylaxis will be switched from Lovenox to Eliquis history of PE of 12/2016 Fall with head impact - no focal neuro deficits noted - CT head without acute finding - Fall precautions Dementia with behavioral disturbance - bedside sitter ordered - family requesting that patient not be restrained Parkinson's Disease - continue home medications Sinemet Hypertension, with blood pressure elevation possibly secondary to pain due to fracture - continue home medications Flomax, Norvasc, valsartan - Dilaudid 0.2 mg IV q3h PRN pain - monitor trends in blood pressure readings and adjust therapy as indicated Chronic medical conditions of CHF, Pleural effusion, GERD with esophagitis and Prostate problem. Continue outpatient medications as appropriate DVT prophylaxis - Patient takes Eliquis and will be restarted tomorrow history of PE and A. fib. EKG with sinus rhythm LAFB and RBBB no significant change from previous on my interpretation Discharge Planning SNF in 1-2 days Sitter needs to be dc Problem Qualifiers (1) Intertrochanteric fracture of right hip: Qualified Code: S72.144A - Closed nondisplaced intertrochanteric fracture of right femur, initial encounter Gurpreet Ann MD Feb 04, 2017 16:11
[2017-02-04] MEDS: TAMSULOSIN HCL 0.4 MG CAP PO SCH (18:31)
[2017-02-04] MEDS ORDERED: APIXABAN 5 MG TABLET PO SCH (21:00)
[2017-02-04] MEDS: traZODone HCL 50 MG TAB PO SCH (22:02)
[2017-02-05] VITALS (9 sets, daily range): BP systolic 99–143; BP diastolic 53–72; PULSE 58–77; RESP 16–18; TEMP 96.7–98.4; O2SAT 96–99
--- NOTE | 2017-02-05 06:25 | PD.ORT.PN ---
Subjective Subjective Remarks POD 2 s/p IMN right hip patient has been slightly confused. has sitter at bedside. reports mild pain in hip. Objective Vitals Vital Signs Date Time Temp Pulse Resp B/P Pulse Ox O2 Delivery O2 Flow Rate FiO2 02/05/17 04:25 98.4 65 18 133/69 97 02/05/17 00:25 97.9 58 18 103/54 97 02/04/17 20:25 99.3 80 18 165/74 97 02/04/17 15:39 97.6 72 17 126/62 93 02/04/17 13:49 93 21 02/04/17 11:50 97.7 75 17 132/58 94 02/04/17 10:53 73 18 118/58 02/04/17 07:55 97.9 69 17 154/68 94 02/04/17 07:30 Room Air I/O 02/04/17 02/04/17 02/04/17 02/05/17 02/05/17 02/05/17 06:59 14:59 22:59 06:59 14:59 22:59 Intake Total 60 ml 760 ml 240 ml Output Total 400 ml 150 ml Balance -340 ml 760 ml 90 ml Intake Oral 60 ml 660 ml 240 ml IV Total 100 ml Output Urine Total 400 ml 150 ml # Voids 3 # Bowel Movements 0 0 0 Result Diagram: 02/04/17 0533 02/03/17 0933 Imaging Last 24 hours Impressions Hip and Pelvis X-Ray 02/02/17 1835 Signed Impressions: Service Date/Time: Thursday, February 02, 2017 19:11 - CONCLUSION: Minimally displaced intertrochanteric fracture of right proximal femur. Go Castelan MD Objective Remarks RLE: dressings clean and dry. intact. NVI Assessment & Plan Assessment and Plan 1) Right intertrochanteric femur fracture s/p IMN - POD 2 -WBAT -daily dressing changes -CM for SNF placement -DVT prophylaxis with lovenox. DC with Xarelto -ortho cleared for DC to SNF when arrangements made -f/u with [facility] or [facility] in 2 weeks Mohit Cruz Feb 05, 2017 06:25
[2017-02-05] MEDS: SODIUM CHLORIDE 0.9% FLUSH 10 ML FLUSH IV FLUSH SCH ×2 (09:41→20:10)
[2017-02-05] MEDS: NUPLAZID 34 MG PO SCH (09:41)
[2017-02-05] MEDS: SODIUM CHLORIDE 0.9% FLUSH 5 ML FLUSH IVF SCH ×2 (09:41→20:10)
[2017-02-05] MEDS: VALSARTAN 160 MG TAB PO SCH (09:43)
[2017-02-05] MEDS: CALCIUM/VITAMIN D 250 MG/125 U TAB PO SCH ×3 (09:43→17:51)
[2017-02-05] MEDS: DOCUSATE SODIUM 100 MG CAP PO SCH ×3 (09:43→17:51)
[2017-02-05] MEDS: CHOLECALCIFEROL (VIT D3) 5000 UNIT CAP PO SCH (09:43)
[2017-02-05] MEDS: APIXABAN 5 MG TABLET PO SCH ×2 (09:43→20:21)
[2017-02-05] MEDS: PANTOPRAZOLE SOD 40 MG DELAYED RELEASE TAB PO SCH (09:43)
[2017-02-05] MEDS: ACETAMINOPHEN/HYDROcodone 325 MG/5 MG TAB PO PRN ×2 (09:44→14:20)
[2017-02-05] MEDS: RIVASTIGMINE TARTRATE 1.5 MG CAP PO SCH ×2 (10:10→17:51)
[2017-02-05] MEDS: GLYCOPYRROLATE 1 MG TAB PO SCH ×2 (10:10→20:21)
[2017-02-05] MEDS: CARBIDOPA/LEVODOPA 25 MG/100 MG TAB PO SCH ×4 (10:10→20:21)
--- NOTE | 2017-02-05 11:05 | HHI.PR ---
Subjective Remarks Mental status is not yet to baseline potential. No complaints of pain or nausea. Patient out of bed in chair today. Objective Vital Signs Date Time Temp Pulse Resp B/P Pulse Ox O2 Delivery O2 Flow Rate FiO2 02/05/17 10:01 98 02/05/17 09:44 Room Air 02/05/17 07:37 96.7 65 18 143/69 96 02/05/17 04:25 98.4 65 18 133/69 97 02/05/17 00:25 97.9 58 18 103/54 97 02/04/17 20:25 99.3 80 18 165/74 97 02/04/17 15:39 97.6 72 17 126/62 93 02/04/17 13:49 93 21 02/04/17 11:50 97.7 75 17 132/58 94 I/O 02/04/17 02/04/17 02/04/17 02/05/17 02/05/17 02/05/17 07:00 15:00 23:00 07:00 15:00 23:00 Intake Total 60 ml 760 ml 240 ml 120 ml Output Total 400 ml 150 ml 125 ml Balance -340 ml 760 ml 90 ml -5 ml Intake Oral 60 ml 660 ml 240 ml 120 ml IV Total 100 ml Output Urine Total 400 ml 150 ml 125 ml # Voids 3 # Bowel Movements 0 0 0 0 Result Diagram: 02/04/17 0533 02/03/17 0933 Objective Remarks GENERAL: NAD, A&Ox1 HEAD: Normocephalic. NECK: Supple, trachea midline. No lymphadenopathy. EYES: No scleral icterus. No injection or drainage. CARDIOVASCULAR: Regular rate and rhythm without murmurs, gallops, or rubs. RESPIRATORY: Breath sounds equal bilaterally. No accessory muscle use. GASTROINTESTINAL: Abdomen soft, non-tender, nondistended. MUSCULOSKELETAL: No cyanosis, or edema. SKIN: Warm and dry. NEURO: No focal neurological deficitis. A/P Problem List: (1) Intertrochanteric fracture of right hip ICD Code: S72.141A (2) Injury of right hip ICD Code: S79.911A (3) Dementia ICD Code: F03.90 (4) HTN (hypertension) ICD Code: I10 Assessment and Plan Assessment and Plan 71-year-old male with Parkinson's disease. Subacute left hip fracture admitted with a new right hip fracture. Right hip intertrochanteric fracture Status post surgical repair s/p fall at home Continue pain management Now on eloquent is Dementia with behavioral disturbance Follow for improvement Parkinson's Disease Continue Sinemet Hypertension Improve stability Follow blood pressure trends Treat pain Continue Norvasc, valsartan, and Flomax CHF Chronic pleural effusion Gastroesophageal reflux disease BPH History of esophagitis No exacerbations of these conditions Baseline treatments continued Follow clinically DVT prophylaxis Apolinar Tesfaye Discharge Planning SNF in 1-2 days Problem Qualifiers (1) Intertrochanteric fracture of right hip: Qualified Code: S72.144A - Closed nondisplaced intertrochanteric fracture of right femur, initial encounter Ryan Thornton MD Feb 05, 2017 11:05
[2017-02-05] MEDS: TAMSULOSIN HCL 0.4 MG CAP PO SCH (16:13)
[2017-02-05] MEDS: ACETAMINOPHEN/HYDROcodone 325 MG/10 MG TAB PO PRN (18:30)
[2017-02-05] MEDS: traZODone HCL 50 MG TAB PO SCH (20:21)
[2017-02-06] VITALS: BP 126/82; PULSE 83; RESP 16; TEMP 97.1; O2SAT 98
[2017-02-06] MEDS: ACETAMINOPHEN/HYDROcodone 325 MG/10 MG TAB PO PRN ×3 (00:36→14:01)
[2017-02-06 04:00] VITALS: BP 143/66; PULSE 86; RESP 16; TEMP 98.1; O2SAT 94
[2017-02-06 06:30] LABS: HEMATOCRIT 37.6 % (39.0-51.0); MEAN CELL VOLUME 90.9 FL (80.0-100.0); MEAN CORPUSCULAR HEMOGLOBIN 30.9 PG (27.0-34.0); MEAN CORPUSCULAR HGB CONC 33.9 % (32.0-36.0); PLATELET COUNT 229 TH/MM3 (150-450); RED BLOOD COUNT 4.14 MIL/MM3 (4.50-5.90); RED CELL DISTRIBUTION WIDTH 14.7 % (11.6-17.2); REVIEW FLAG FINAL
[2017-02-06 07:01] LABS: BICARBONATE 28.5 MEQ/L (21.0-32.0); POTASSIUM 3.5 MEQ/L (3.5-5.1)
--- NOTE | 2017-02-06 07:08 | PD.ORT.PN ---
Subjective Subjective Remarks POD 3 s/p IMN right hip patient has been slightly confused. sitting at bedside. in room. patient still confused. reports pain in right hip Objective Vitals Vital Signs Date Time Temp Pulse Resp B/P Pulse Ox O2 Delivery O2 Flow Rate FiO2 02/06/17 04:00 98.1 86 16 143/66 94 02/06/17 00:00 97.1 83 16 126/82 98 02/05/17 21:16 76 02/05/17 19:45 96.9 76 16 133/72 97 02/05/17 15:59 97.0 75 18 124/61 97 02/05/17 11:34 97.4 77 18 99/53 99 02/05/17 10:01 98 02/05/17 09:44 Room Air 02/05/17 08:22 60 02/05/17 07:37 96.7 65 18 143/69 96 I/O 02/05/17 02/05/17 02/05/17 02/06/17 02/06/17 02/06/17 07:00 15:00 23:00 07:00 15:00 23:00 Intake Total 120 ml 400 ml 360 ml 240 ml Output Total 125 ml 250 ml 400 ml 350 ml Balance -5 ml 150 ml -40 ml -110 ml Intake Oral 120 ml 400 ml 360 ml 240 ml Output Urine Total 125 ml 250 ml 400 ml 350 ml # Bowel Movements 0 0 Result Diagram: 02/06/17 0607 02/06/17 0607 Imaging Last 24 hours Impressions Hip and Pelvis X-Ray 02/02/17 1835 Signed Impressions: Service Date/Time: Thursday, February 02, 2017 19:11 - CONCLUSION: Minimally displaced intertrochanteric fracture of right proximal femur. Go Castelan MD Objective Remarks RLE: dressings clean and dry. intact. NVI Assessment & Plan Assessment and Plan 1) Right intertrochanteric femur fracture s/p IMN - POD 3 -WBAT -daily dressing changes -CM for SNF placement -DVT prophylaxis with lovenox. DC with Xarelto -ortho cleared for DC to SNF when arrangements made -f/u with [facility] or [facility] in 2 weeks Mohit Cruz Feb 06, 2017 07:08
[2017-02-06 07:43] VITALS: BP 145/71; PULSE 69; RESP 19; TEMP 95.8; O2SAT 96
[2017-02-06 08:00] VITALS: PULSE 60
[2017-02-06] MEDS: SODIUM CHLORIDE 0.9% FLUSH 10 ML FLUSH IV FLUSH SCH (09:56)
[2017-02-06] MEDS: SODIUM CHLORIDE 0.9% FLUSH 5 ML FLUSH IVF SCH (09:56)
[2017-02-06] MEDS: APIXABAN 5 MG TABLET PO SCH (09:56)
[2017-02-06] MEDS: PANTOPRAZOLE SOD 40 MG DELAYED RELEASE TAB PO SCH (09:58)
[2017-02-06] MEDS: CALCIUM/VITAMIN D 250 MG/125 U TAB PO SCH ×2 (09:58→14:01)
[2017-02-06] MEDS: DOCUSATE SODIUM 100 MG CAP PO SCH ×2 (09:58→14:01)
[2017-02-06] MEDS: GLYCOPYRROLATE 1 MG TAB PO SCH (09:58)
[2017-02-06] MEDS: NUPLAZID 34 MG PO SCH (09:58)
[2017-02-06] MEDS: RIVASTIGMINE TARTRATE 1.5 MG CAP PO SCH (09:59)
[2017-02-06] MEDS: VALSARTAN 160 MG TAB PO SCH (09:59)
[2017-02-06] MEDS: CHOLECALCIFEROL (VIT D3) 5000 UNIT CAP PO SCH (10:00)
[2017-02-06] MEDS: CARBIDOPA/LEVODOPA 25 MG/100 MG TAB PO SCH ×2 (10:04→14:01)
[2017-02-06] MEDS ORDERED: GLYCERIN ADULT 2 GM SUPP RECTAL ONE (11:00)
[2017-02-06] MEDS ORDERED: MAGNESIUM CITRATE SOLN 300 ML BTL PO PRN (11:00)
--- NOTE | 2017-02-06 11:03 | HHI.PR ---
Subjective Remarks Patient is doing well when seen today. No need for sitter through this morning. Patient may be improved enough that he no longer needs 24 7 monitoring. No bowel movement has occurred yet. Objective Vital Signs Date Time Temp Pulse Resp B/P Pulse Ox O2 Delivery O2 Flow Rate FiO2 02/06/17 08:27 Room Air 02/06/17 07:43 95.8 69 19 145/71 96 02/06/17 04:00 98.1 86 16 143/66 94 02/06/17 00:00 97.1 83 16 126/82 98 02/05/17 21:16 76 02/05/17 19:45 96.9 76 16 133/72 97 02/05/17 15:59 97.0 75 18 124/61 97 02/05/17 11:34 97.4 77 18 99/53 99 I/O 02/05/17 02/05/17 02/05/17 02/06/17 02/06/17 02/06/17 07:00 15:00 23:00 07:00 15:00 23:00 Intake Total 120 ml 400 ml 360 ml 240 ml Output Total 125 ml 250 ml 400 ml 350 ml Balance -5 ml 150 ml -40 ml -110 ml Intake Oral 120 ml 400 ml 360 ml 240 ml Output Urine Total 125 ml 250 ml 400 ml 350 ml # Bowel Movements 0 0 Result Diagram: 02/06/1760602/06/17 0607 Objective Remarks GENERAL: NAD, A&Ox1 HEAD: Normocephalic. NECK: Supple, trachea midline. No lymphadenopathy. EYES: No scleral icterus. No injection or drainage. CARDIOVASCULAR: Regular rate and rhythm without murmurs, gallops, or rubs. RESPIRATORY: Breath sounds equal bilaterally. No accessory muscle use. GASTROINTESTINAL: Abdomen soft, non-tender, nondistended. MUSCULOSKELETAL: No cyanosis, or edema. SKIN: Warm and dry. NEURO: No focal neurological deficitis. A/P Problem List: (1) Intertrochanteric fracture of right hip ICD Code: S72.141A (2) Injury of right hip ICD Code: S79.911A (3) Dementia ICD Code: F03.90 (4) HTN (hypertension) ICD Code: I10 Assessment and Plan Assessment and Plan 71-year-old male with Parkinson's disease. Subacute left hip fracture admitted with a new right hip fracture. Constipation present. Start twice a day MiraLAX , Colace, and Metamucil. Glycerin suppository provided 1. Will provide magnesium citrate this afternoon if no bowel movement occurs with current treatment. Monitor cognitive status. Right hip intertrochanteric fracture Status post surgical repair s/p fall at home Continue pain management Now on eloquent is Dementia with behavioral disturbance Follow for improvement Parkinson's Disease Continue Sinemet Hypertension Improve stability Follow blood pressure trends Treat pain Continue Norvasc, valsartan, and Flomax CHF Chronic pleural effusion Gastroesophageal reflux disease BPH History of esophagitis No exacerbations of these conditions Baseline treatments continued Follow clinically DVT prophylaxis Apolinar Tesfaye Discharge Planning SNF in 1-2 days, after bowel movement is present and cognition is improved and stable. Problem Qualifiers (1) Intertrochanteric fracture of right hip: Qualified Code: S72.144A - Closed nondisplaced intertrochanteric fracture of right femur, initial encounter Ryan Thornton MD Feb 06, 2017 11:03
[2017-02-06 11:35] VITALS: O2SAT 97
[2017-02-06 11:45] VITALS: BP 104/52; PULSE 54; RESP 18; TEMP 95.9; O2SAT 95
[2017-02-06] MEDS ORDERED: MAGNSOL2 PO (12:22)
[2017-02-06] MEDS ORDERED: POLY17S PO (12:22)
[2017-02-06] MEDS ORDERED: KONS100P3 PO (12:22)
--- NOTE | 2017-02-06 14:40 | HHI.DS ---
Discharge Summary Admission Date Feb 02, 2017 at 20:33 Discharge Date: Feb 06, 2017 Admitting Diagnosis right intertrochanteric fracture (1) Intertrochanteric fracture of right hip ICD Code: S72.141A Procedures Right hip reduction and intramedullary nail fixation Brief History - From Admission Written by Kathy Green, acting as scribe for Dr. Winter on 02/02/17 at 22:59. The patient is seen in his hospital room. He is complaining of pain in the right and left hip following a fall today. stated left hip pain started prior to the fall- by both family members and patient himself He denies chest pain, dizziness, shortness of breath, unilateral weakness, nausea, diaphoresis, or abdominal pain. According to his at the bedside, he was using a walker to ambulate and fell and hit his head on the wall and landed on his right hip. He was placed on full weight bearing on Thursday after recovering from his left hip replacement sx which was in December. Denies fever, n/v/diarrhea, dysuria, hematuria, black or red stool, chest pain, shortness of breath or dizziness. CBC/BMP: 02/06/17 0607 02/06/17 0607 Significant Findings Laboratory Tests Test 02/04/17 02/06/17 05:33 06:07 Hemoglobin 12.5 GM/DL 12.8 GM/DL (13.0-17.0) (13.0-17.0) Hematocrit 36.6 % 37.6 % (39.0-51.0) (39.0-51.0) Red Blood Count 4.14 MIL/MM3 (4.50-5.90) Blood Urea Nitrogen 21 MG/DL (7-18) Random Glucose 112 MG/DL (74-106) PE at Discharge GENERAL: NAD, A&Ox1 HEAD: Normocephalic. NECK: Supple, trachea midline. No lymphadenopathy. EYES: No scleral icterus. No injection or drainage. CARDIOVASCULAR: Regular rate and rhythm without murmurs, gallops, or rubs. RESPIRATORY: Breath sounds equal bilaterally. No accessory muscle use. GASTROINTESTINAL: Abdomen soft, non-tender, nondistended. MUSCULOSKELETAL: No cyanosis, or edema. Limited range of motion secondary to acute, but repaired right hip fracture. Limited range of motion secondary to subacute left hip fracture. SKIN: Warm and dry. NEURO: No focal neurological deficitis. Hospital Course Mr. Monzon is a 71-year-old male. He was admitted secondary to a fall in which she develops an acute right hip fracture. He had been admitted here last month secondary to a left hip fracture and had complications with blood clots as an outpatient while at rehabilitation. The right hip was repaired while he was hospitalized here. He will need further rehabilitation. 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 We're using the minimum amount of narcotics possible to control his pain and his cognition though problem immediately after surgery has improved her time. He is nearing his baseline. No longer needing a sitter and not needing restraints. Bowel movement has occurred since his surgery. Currently he is medically stable. Medically stable for discharge to custodial facility with rehabilitation today. Pt Condition on Discharge: Stable Discharge Disposition: Discharge to SNF Discharge Time: > 30 minutes Discharge Instructions DIET: Follow Instructions for: As Tolerated, No Restrictions Activities you can perform: Regular-No Restrictions Follow up Referrals: Orthopedics - 02/18/17 @ [facility] with Morris George MD PCP Follow-up - 1 Week New Medications: Hydrocodone-Acetaminophen ([place]) 5-325 mg Tab 1 TAB PO Q4H PRN PAIN #60 Ref 0 TAB Magnesium Citrate Liq (Magnesium Citrate Liq) 300 Ml Liq 300 ML PO ONCE PRN 5 days of constipation #1 Ref 0 BOTTLE Walker/Adult/Folding (Walker/Adult/Folding) 1 Mis Mis 1 EA .ROUTE DIRECTED #1 Ref 0 EA Docusate Sodium (Dok) 100 Mg Cap 100 MG PO BID Prevent Constipation #90 CAP Polyethylene Glycol 3350 Powder (Polyethylene Glycol 3350 Powder) 17 Gm Pow 17 GM PO BID Constipation #60 BOTTLE Psyllium Powder (Konsyl) 100 % Pow 1 PKT PO BID Constipation #60 BOTTLE Continued Medications: Amlodipine (Amlodipine) 10 Mg Tab 10 MG PO DAILY Blood Pressure Management #30 Ref 0 TAB Apixaban (Eliquis) 5 Mg Tab 5 MG PO BID Blood Clot Prevention #60 Ref 0 TAB Calcium Carbonate-Vitamin D (Calcium 600+D 200) 600-200 Mg-Unit Tab 1 TAB PO BID Nutritional Supplement Days 30 Ref 0 TAB Carbidopa-Levodopa (Sinemet) 25-100 Mg Tab 2 TAB PO QID Parkinson Disease Mgmt #90 Ref 0 TAB Cholecalciferol (Vitamin D3) 2,000 Unit Cap 2000 UNITS PO DAILY Nutritional Supplement #56 Ref 0 CAP Ergocalciferol (Ergocalciferol) 50,000 Unit Cap 19796 UNITS PO Q7D Nutritional Supplement #56 CAP Glycopyrrolate (Glycopyrrolate) 1 Mg Tab 1 MG PO BID DROOLING #60 Ref 0 TAB Hydrocodone-Acetaminophen (Hydrocodone-Acetaminophen) 7.5-325 mg Tab 1 TAB PO Q4H PRN PAIN #60 Ref 0 TAB Melatonin (Gnp Melatonin Maximum Str) 5 Mg Tab 10 MG PO HS Pantoprazole (Protonix) 40 Mg Tab 40 MG PO DAILY Reflux #30 Ref 0 TAB Pimavanserin (Nuplazid) 17 Mg Tab 34 MG PO DAILY Parkinson Disease Mgmt Quetiapine (Seroquel) 25 Mg Tab 25 MG PO BID PRN ANXIETY #60 Ref 0 TAB Rivastigmine (Rivastigmine) 1.5 Mg Cap 1.5 MG PO BIDPC Dementia #60 Ref 0 CAP Tamsulosin (Tamsulosin) 0.4 Mg Cap 0.8 MG PO AC DINNER Manage Prostate Problems #60 Ref 0 CAP Trazodone (Trazodone) 50 Mg Tab 50 MG PO HS Control Depression #30 Ref 0 TAB Valsartan (Valsartan) 160 Mg Tab 160 MG PO DAILY #30 Ref 0 TAB Discontinued Medications: Docusate Sodium (Stool Softener) 50 Mg Capsule Tramadol (Tramadol) 50 Mg Tab 50 MG PO Q6H PRN PAIN Ref 0 TAB Ryan Thornton MD Feb 06, 2017 14:40
[2017-02-06] MEDS ORDERED: PSYLLIUM FIBER SF/GF 6 GM POWD PKT PO SCH (21:00)
[2017-02-06] MEDS ORDERED: POLYETHYLENE GLYCOL 17 GM PKG PO SCH (21:00)
== END 2017-02-06 14:58 | DRG 481 ==
LOC: NEPE 18:10 → NEDA 20:33 → N05B 21:33 → N06B 02-03 14:29 → N06A 02-03 18:32
PROVIDERS: ADMIT Hospitalist; ATTEND Hospitalist
PROC: 0QH636Z Insertion of Intramedullary Internal Fixation Device into Right Upper Femur, Percutaneous Approach (ICD-10-PCS; principal; 2017-02-03 14:31)
DX: S72.141A Displaced intertrochanteric fracture of right femur, initial encounter for closed fracture (principal); F02.81 Dementia in other diseases classified elsewhere, unspecified severity, with behavioral disturbance; I11.0 Hypertensive heart disease with heart failure; G20 Parkinson's disease; I50.9 Heart failure, unspecified; G30.9 Alzheimer's disease, unspecified; I48.91 Unspecified atrial fibrillation; K21.0 Gastro-esophageal reflux disease with esophagitis; K59.00 Constipation, unspecified; M81.0 Age-related osteoporosis without current pathological fracture; N40.0 Benign prostatic hyperplasia without lower urinary tract symptoms; W01.198A Fall on same level from slipping, tripping and stumbling with subsequent striking against other object, initial encounter; Y92.009 Unspecified place in unspecified non-institutional (private) residence as the place of occurrence of the external cause; Z86.711 Personal history of pulmonary embolism; Z96.642 Presence of left artificial hip joint; Z96.653 Presence of artificial knee joint, bilateral
CPT/HCPCS: 70450; 71010; 73502; 76000; 80048; 80053; 82306; 82550; 85014; 85018; 85025; 85027; 85610; 85730; 86850; 86900; 86901; 93005; 96374; 96375; C1713; J0131; J0690; J1170; J1580; J1650; J2270; J2405; J3010; J3370